=== PATIENT | female | born 1940 | race Caucasian/White ===

== ENCOUNTER 2020-07-12 06:06 | Day surgery (SDC) | payer MEDICARE, SELFPAY ==
--- NOTE | 2020-07-11 10:32 | HO.ANESPROP2 ---
Documented by User: Suma Art 07/11/20 10:39 HPI - Anesthesia Eval Consult details Narrative: 79yo F for Lithotripsy ESW PMFSH Past Medical History Medical History Aortic valvular disease Arrhythmia Cancer Diabetes Elevated cholesterol HTN (hypertension) Hx of radiation therapy Hx of renal calculi Thyroid disease Surgical History Surgical History H/O colonoscopy History of breast lump/mass excision Hx of appendectomy Hx of lithotripsy Social History Social History Smoking Status: Former smoker Smoked in Last 30 Days: No Smoking Quit Date: as teen Use of substances other than those prescribed or required for medical reasons: No Have you been hit, kicked, punched, or otherwise hurt by someone within the past year? If so, by whom?: No Advance Directives Information Provided: No Recently lost weight without trying: No Meds Allergies Allergy/AdvReac Type Severity Reaction Status Date / Time Sulfa (Sulfonamide Allergy Intermediate RASH Verified 07/07/20 09:41 Antibiotics) [SULFA (SULFONAMIDE ANTIBIOTICS)] Home Medications Medication Instructions Recorded Confirmed Type letrozole 1 tab PO DAILY 07/07/20 07/07/20 History levothyroxine 1 tab PO DAILY 07/07/20 07/07/20 History metformin 1 tab PO DAILY 07/07/20 07/07/20 History paroxetine HCl 1 tab PO DAILY 07/07/20 07/07/20 History indapamide 1 tab PO QAM 07/12/20 07/12/20 History olmesartan 1 tab PO DAILY 07/12/20 07/12/20 History pyridoxine (vitamin B6) 1 tab PO DAILY 07/12/20 07/12/20 History rosuvastatin 10 mg PO BEDTIME 07/12/20 07/12/20 History Exam Exam Date and Time: July 11, 2020 1032 Height,Weight and Vital Signs: Height 5 ft 4 in Weight 79.379 kg Pertinent Lab Results Pertinent Lab Results: Laboratory Tests 05/09/20 05/09/20 09:00 09:00 WBC 5.3 Hgb 12.7 Hct 39.9 Sodium 142 Potassium 4.6 Chloride 109 H BUN 14 Creatinine 1.20 Assessment and Plan Assessment Anesthesia Assessment: Chart Reviewed Documented by User: Connie Smith 07/12/20 07:35 PMFSH Past Medical History Medical History Aortic valvular disease Arrhythmia Cancer Diabetes Elevated cholesterol HTN (hypertension) Hx of radiation therapy Hx of renal calculi Thyroid disease Surgical History Surgical History H/O colonoscopy History of breast lump/mass excision Hx of appendectomy Hx of lithotripsy Social History Social History Smoking Status: Former smoker Smoked in Last 30 Days: No Smoking Quit Date: as teen Use of substances other than those prescribed or required for medical reasons: No Have you been hit, kicked, punched, or otherwise hurt by someone within the past year? If so, by whom?: No Advance Directives Information Provided: No Recently lost weight without trying: No Meds Allergies Allergy/AdvReac Type Severity Reaction Status Date / Time Sulfa (Sulfonamide Allergy Intermediate RASH Verified 07/07/20 09:41 Antibiotics) [SULFA (SULFONAMIDE ANTIBIOTICS)] Home Medications Medication Instructions Recorded Confirmed Type letrozole 1 tab PO DAILY 07/07/20 07/07/20 History levothyroxine 1 tab PO DAILY 07/07/20 07/07/20 History metformin 1 tab PO DAILY 07/07/20 07/07/20 History paroxetine HCl 1 tab PO DAILY 07/07/20 07/07/20 History indapamide 1 tab PO QAM 07/12/20 07/12/20 History olmesartan 1 tab PO DAILY 07/12/20 07/12/20 History pyridoxine (vitamin B6) 1 tab PO DAILY 07/12/20 07/12/20 History rosuvastatin 10 mg PO BEDTIME 07/12/20 07/12/20 History Exam Airway Mallampati Class: II TM Dist: >3cm Neck ROM: Full Partial: Upper Heart: RRR Lungs: CTA
--- NOTE | 2020-07-12 06:00 | XR_ITS ---
EXAMINATION: ABDOMEN 1 VIEW CLINICAL INFORMATION: Right nephrolithiasis. COMPARISON: 06/02/2020. TECHNIQUE: A supine view of the abdomen is provided. FINDINGS: There are no dilated loops of small bowel. There are no air-fluid levels. Overlying the interpole region of the right kidney, there is an approximately 8 mm calcification.. The visualized lung bases are clear. The osseous structures are stable. XR/XR KUB IMPRESSION: Unremarkable bowel gas pattern. 8 mm right renal calcification.
[2020-07-12 07:07] LABS: Glucose, Whole Blood 122 mg/dL (60-115)
[2020-07-12 07:20] VITALS: BP 151/70; PULSE 62; RESP 20; TEMP 36.4; O2SAT 98
[2020-07-12] MEDS: Lactated Ringers 1,000 ML 50 ML IVCONT (07:32)
--- NOTE | 2020-07-12 07:35 | P.CONAN_ITS ---
[facility] Past Medical History Medical History Aortic valvular disease Arrhythmia Cancer Diabetes Elevated cholesterol HTN (hypertension) Hx of radiation therapy Hx of renal calculi Thyroid disease Surgical History Surgical History H/O colonoscopy History of breast lump/mass excision Hx of appendectomy Hx of lithotripsy Social History Social History Smoking Status: Former smoker Smoked in Last 30 Days: No Smoking Quit Date: as teen Use of substances other than those prescribed or required for medical reasons: No Have you been hit, kicked, punched, or otherwise hurt by someone within the past year? If so, by whom?: No Advance Directives Information Provided: No Recently lost weight without trying: No Meds Allergies Allergy/AdvReac Type Severity Reaction Status Date / Time Sulfa (Sulfonamide Allergy Intermediate RASH Verified 07/07/20 09:41 Antibiotics) [SULFA (SULFONAMIDE ANTIBIOTICS)] Home Medications Medication Instructions Recorded Confirmed Type letrozole 1 tab PO DAILY 07/07/20 07/07/20 History levothyroxine 1 tab PO DAILY 07/07/20 07/07/20 History metformin 1 tab PO DAILY 07/07/20 07/07/20 History paroxetine HCl 1 tab PO DAILY 07/07/20 07/07/20 History indapamide 1 tab PO QAM 07/12/20 07/12/20 History olmesartan 1 tab PO DAILY 07/12/20 07/12/20 History pyridoxine (vitamin B6) 1 tab PO DAILY 07/12/20 07/12/20 History rosuvastatin 10 mg PO BEDTIME 07/12/20 07/12/20 History Exam Exam Date and Time: July 12, 2020 0735 Height,Weight and Vital Signs: Height 5 ft 4 in Weight 79.379 kg Last Vital Signs Temp 97.5 F 07/12/20 07:20 Pulse 62 07/12/20 07:20 Resp 20 07/12/20 07:20 BP 151/70 H 07/12/20 07:20 Pulse Ox 98 07/12/20 07:20 Pertinent Lab Results Pertinent Lab Results: Laboratory Tests 07/12/20 07:02 POC Glucose 122 H Assessment and Plan Assessment Anesthesia Assessment: Anesthesia Plan Discussed and Chart Reviewed Final Anesthetic Review NPO: Yes ASA Class: II Final Preanesthetic Review: No Changes in Pt Med Stat, Meds/Allgs Chart Reviewed, Consent Obtained/Reviewed and Anes Risks/Benef Reviewed Patient Risk: Intermediate Procedure Risk: Low Anesthetic Plan Anesthetic Plan: GA Disposition: Standard PACU
--- NOTE | 2020-07-12 08:06 | PC.NURSE ---
PATIENT STATED SHE HASNT BEEN ON COUMADIN SINCE SEPTEMBER.
--- NOTE | 2020-07-12 08:15 | P.HPSUR_ITS ---
Pre-Procedural Eval Section B Chief Complaint: RIGHT RENAL STONE Details of Present Illness: right renal stone with symptoms Relevant Family History (Specify if Yes): No Relevant Social History: None Present Medications: see Short Stay Collaborative assessment Medical History: Significant History History of Previous Operations: Relevant previous surgery/procedure and date(s) Allergies: Allergies Allergy/AdvReac Type Severity Reaction Status Date / Time Sulfa (Sulfonamide Allergy Intermediate RASH Verified 07/07/20 09:41 Antibiotics) [SULFA (SULFONAMIDE ANTIBIOTICS)] Review of Systems Sugical H&P ROS: Negative: Constitution, Cardiovascular, Respiratory, Neurological, Psychiatric, Hem-Onc, Allergic/Immunologic, Gastrointestinal, Genitourinary, Musculoskeletal, Integumentary, Endocrine and Eyes/Ears/Nose/Throat Exam Surgical H&P Exam: Normal: HEENT, Normal: Heart, Normal: Lungs, Normal: E xtremities, Normal: Abdomen, Normal: Skin and Normal: Neurological Plan Diagnosis/Plan: Unchanged Patient has been examined and remains a candidate for the planned procedure
--- NOTE | 2020-07-12 08:49 | PM.OP ---
Brief Operative Note Date of procedure: 07/12/20 Pre-op diagnosis: right nephrolithiasis Post-op diagnosis: same Procedure: right ESWL Surgeon: Michele Jarquin MD Anesthesia: MAC Estimated blood loss (mL): 0 Pathology: none sent Condition: stable Disposition: same day
--- NOTE | 2020-07-12 08:50 | W.PM.OPN ---
Operative Note Operative Note Narrative: PreOperative Diagnosis: Renal stones Post Operative Diagnosis: Renal stones Procedure: Right ESWL Surgeron: Dr Michele Jarquin Anesthesia: mac/sedation Indications for procedure: They understand ESWL may be a staged procedure and subsequent intervention may be required based on imaging after ESWL. They also understand there is a risk of bleeding, infection, damage to adjacent organs. Procedure: After informed consent was verified patient was brought to the operating room placed in supine position. Anesthesia was performed per protocol. Safety pause time-out was performed. Antibiotics have been given. ESWL was performed. The 1st 500 shocks were performed at 60 hertz. This was performed with increasing power. Once maximum power was reached the rate was increased to 180 hertz. A total of 2500 shocks were given. Fluoroscopy showed stone disintegration. They tolerated procedure well and was transferred to the recovery area upon completion.
[2020-07-12 08:54] VITALS: BP 183/65; PULSE 73; RESP 16; TEMP 36.6; O2SAT 97
[2020-07-12 08:59] VITALS: BP 163/60; PULSE 69; RESP 16; O2SAT 100
[2020-07-12 09:04] VITALS: BP 169/67; PULSE 65; RESP 16; TEMP 36.6; O2SAT 100
[2020-07-12 09:09] VITALS: BP 168/81; PULSE 66; RESP 16; O2SAT 99
--- NOTE | 2020-07-12 09:40 | HO.POSTANES ---
Post Anesthesia Evaluation Post Anesthesia Evaluation Vital Signs: Vital Signs Temp Pulse Resp BP Pulse Ox 07/12/20 09:09 97.8 F 66 16 168/81 H 99 07/12/20 09:04 97.8 F 65 16 169/67 H 100 07/12/20 08:59 69 16 163/60 H 100 07/12/20 08:54 97.8 F 73 16 183/65 H 97 07/12/20 07:20 97.5 F 62 20 151/70 H 98 Anesthesia: General LMA Mental Status: Awake Pain Control: Satisfactory Nausea/Vomiting: None Hydration: Adequate Anesthesia-Related Issues: No Anes. Related Issues
== END 2020-07-12 09:55 | disposition home or self-care (01) ==
PROVIDERS: PCP Internal Medicine; Visit Provider Urology
PROC: (CPT 50590; principal; 2020-07-12 07:30)
DX: N20.0 Calculus of kidney (principal); Z87.442 Personal history of urinary calculi; I10 Essential (primary) hypertension; E11.9 Type 2 diabetes mellitus without complications; I48.91 Unspecified atrial fibrillation; E78.5 Hyperlipidemia, unspecified; C50.912 Malignant neoplasm of unspecified site of left female breast; Z79.811 Long term (current) use of aromatase inhibitors; Z92.3 Personal history of irradiation; Z90.710 Acquired absence of both cervix and uterus; Z79.84 Long term (current) use of oral hypoglycemic drugs; Z79.899 Other long term (current) drug therapy; Z96.653 Presence of artificial knee joint, bilateral; Z87.891 Personal history of nicotine dependence; Z88.2 Allergy status to sulfonamides; Z86.19 Personal history of other infectious and parasitic diseases
CPT/HCPCS: 50590; 74018; 82947; J1100; J2405; J3010

== ENCOUNTER 2020-08-28 08:50 | Outpatient (REF) | payer MEDICARE, SELFPAY ==
--- NOTE | 2020-08-28 08:55 | MM_ITS ---
EXAMINATION: MM DIAGNOSTIC DIGITAL MAMMOGRAPHY, BILATERAL CLINICAL INFORMATION: Right breast cancer status post lumpectomy 08/27/2017. More remote prior left breast surgery. Due for yearly COMPARISON: Mammography: 08/23/2019, 07/09/2018, 07/24/2017, 07/08/2017 TECHNIQUE: Digital mammography is performed in craniocaudal and mediolateral oblique views along with computer-aided detection (CAD). FINDINGS: There are scattered areas of fibroglandular density (ACR BI-RADS breast composition Category b). There are no significant changes from prior exam. Again, left breast has post surgical changes with reduced breast size, stable scarring, lumpectomy bed surgical clip, and left axillary clips. The right breast has a BioZorb device at the recent lumpectomy site as well as to two biopsy clip markers mid 9:00 position and right axillary surgical clips. Neither breast shows interval mass or interval architectural abnormality or abnormal calcifications. There are no significant changes. Results are provided to the patient at time of visit by the technologist. MM/MM diagnostic mammo BI IMPRESSION: No significant changes from prior exam. Bilateral postsurgical changes. ASSESSMENT: BI-RADS 2: Benign RECOMMENDATION: Routine annual mammography screening. This patient's information was entered into a reminder system with a target due date for their next mammogram.
== END 2020-08-28 08:51 | disposition home or self-care (01) ==
LOC: HO.MAMMO 08:50
PROVIDERS: Visit Provider Surgery
DX: C80.1 Malignant (primary) neoplasm, unspecified (principal)
CPT/HCPCS: 77066

== ENCOUNTER → 2020-09-13 08:49 | Outpatient (BNVA) | payer MEDICARE, SELFPAY | PROVIDERS: PCP Internal Medicine; Visit Provider Surgery | DX: C80.1 Malignant (primary) neoplasm, unspecified (principal) | CPT/HCPCS: 99212 ==

== ENCOUNTER → 2020-11-06 08:19 | Outpatient (BNV) | payer MEDICARE, SELFPAY | PROVIDERS: PCP Internal Medicine; Visit Provider Internal Medicine | DX: Z85.3 Personal history of malignant neoplasm of breast (principal) | CPT/HCPCS: 99213; 99214; G2211 ==

== ENCOUNTER 2020-12-21 09:43 | Outpatient (REF) | payer MEDICARE, SELFPAY ==
--- NOTE | ~2020-12-21 | US_ITS ---
EXAMINATION: US RETROPERITONEAL LIMITED (RENAL ONLY) CLINICAL INFORMATION: Calculus of kidney. COMPARISON: KUB 07/12/2020 and 06/02/2020. Renal ultrasound 07/13/2019 and 11/07/2016. TECHNIQUE: Real-time imaging of the kidneys. FINDINGS: RIGHT KIDNEY: 9.0 x 3.8 x 4.8 cm (SAG x AP x TRV). The kidney is normal in size, contour, and echogenicity. Renal cortical thickness is normal. No focal parenchymal lesions or hydronephrosis. There are numerous punctate foci. The largest foci in the midpole measures 0.4 x 0.5 x 0.4 cm and lower pole measures 0.3 x 0.2 x 0.2 cm. LEFT KIDNEY: 10.6 x 4.6 x 4.9 cm (SAG x AP x TRV). The kidney is normal in size, contour, and echogenicity. Renal cortical thickness is normal. No focal parenchymal lesions or hydronephrosis. There are numerous punctate foci with the largest midpole measuring 0.2 x 0.2 x 0.3 cm. US/US renal BI IMPRESSION: Bilateral numerous echogenic foci without caliectasis or hydronephrosis. Both kidneys are otherwise unremarkable.
== END 2020-12-21 09:44 | disposition home or self-care (01) ==
LOC: HO.HMGCX 09:43
PROVIDERS: PCP Internal Medicine; Visit Provider Urology
DX: N20.0 Calculus of kidney (principal)
CPT/HCPCS: 76775

== ENCOUNTER → 2020-12-28 09:30 | Outpatient (BNVA) | payer MEDICARE, SELFPAY | PROVIDERS: PCP Internal Medicine; Visit Provider Urology | DX: N20.0 Calculus of kidney (principal) | CPT/HCPCS: Q3014 ==

== ENCOUNTER → 2021-03-27 10:41 | Outpatient (BNVA) | payer MEDICARE, SELFPAY | PROVIDERS: PCP Internal Medicine; Referring Provider Internal Medicine; Visit Provider Surgery | DX: D05.12 Intraductal carcinoma in situ of left breast (principal); D05.11 Intraductal carcinoma in situ of right breast; E11.9 Type 2 diabetes mellitus without complications; I10 Essential (primary) hypertension; E78.00 Pure hypercholesterolemia, unspecified; Z17.0 Estrogen receptor positive status [ER+]; Z92.3 Personal history of irradiation; Z88.2 Allergy status to sulfonamides; Z79.811 Long term (current) use of aromatase inhibitors; Z79.899 Other long term (current) drug therapy | CPT/HCPCS: 99212 ==

== ENCOUNTER 2021-07-12 08:52 | Outpatient (REF) | payer MEDICARE, SELFPAY ==
--- NOTE | ~2021-07-12 | US_ITS ---
EXAMINATION: US RETROPERITONEAL LIMITED (RENAL ONLY) CLINICAL INFORMATION: Calculus of kidney. COMPARISON: Renal ultrasound 12/21/2020 TECHNIQUE: Real-time imaging of the kidneys. FINDINGS: RIGHT KIDNEY: 8.5 x 3.7 x 2.8 cm (SAG x AP x TRV). The kidney is normal in size, contour, and echogenicity. Renal cortical thickness is normal. There are multiple renal stones. Largest stones measure 5 to 6 mm in the mid to lower pole. No focal parenchymal lesions or hydronephrosis. LEFT KIDNEY: 10.1 x 4.8 x 5.0 cm (SAG x AP x TRV). The kidney is normal in size, contour, and echogenicity. Renal cortical thickness is normal. There are multiple renal stones. Largest stone measures 4 mm in the lower pole. No focal parenchymal lesions or hydronephrosis. US/US renal BI IMPRESSION: Multiple bilateral renal stones.
== END 2021-07-12 08:53 | disposition home or self-care (01) ==
LOC: HO.US 08:52
PROVIDERS: PCP Internal Medicine; Visit Provider Urology
DX: N20.0 Calculus of kidney (principal)
CPT/HCPCS: 76775

== ENCOUNTER → 2021-07-20 09:14 | Outpatient (BNVA) | payer MEDICARE, SELFPAY | PROVIDERS: PCP Internal Medicine | DX: N20.0 Calculus of kidney (principal) | CPT/HCPCS: 99212 ==

== ENCOUNTER 2021-09-10 08:05 | Outpatient (REF) | payer MEDICARE, SELFPAY ==
--- NOTE | ~2021-09-10 | US_ITS ---
EXAMINATION: US RETROPERITONEAL LIMITED (RENAL ONLY) CLINICAL INFORMATION: Calculus of kidney. COMPARISON: Renal ultrasound 07/12/2021 and 12/21/2020. TECHNIQUE: Real-time imaging of the kidneys. FINDINGS: RIGHT KIDNEY: 9.4 x 3.8 x 4.6 cm (SAG x AP x TRV). The kidney is normal in size, contour, and echogenicity. Renal cortical thickness is normal. There is anechoic cyst in upper pole measuring 0.7 x 0.7 x 0.9 cm. There are several echogenic stones. The upper pole echogenic stone measures 0.5 x 0.2 x 0.4 cm. In the midpole the echogenic stone measures 0.5-0 0.3 x 0.5 cm. A lower pole echogenic stone measures 0.5-0 0.2 x 0.4 cm. There is no caliectasis or hydronephrosis. LEFT KIDNEY: 10.2 x 4.6 x 4.9 cm (SAG x AP x TRV). The kidney is normal in size, contour, and echogenicity. Renal cortical thickness is normal. No focal parenchymal lesions or hydronephrosis. There are several small echogenic stones in the left kidney. The largest echogenic stone in the lower pole measures 0.4 x 0.3 x 0.7 cm. Small linear echogenic foci is seen in the midpole with twinkle artifact. US/US renal BI IMPRESSION: Several echogenic stones bilaterally without any caliectasis or hydronephrosis. Linear echogenic foci with twinkling artifact in the midpole.
== END 2021-09-10 08:06 | disposition home or self-care (01) ==
LOC: HO.US 08:05
DX: N20.0 Calculus of kidney (principal)
CPT/HCPCS: 76775

== ENCOUNTER → 2021-09-27 09:28 | Outpatient (BNVA) | payer MEDICARE, SELFPAY | PROVIDERS: PCP Internal Medicine; Referring Provider Internal Medicine; Visit Provider Surgery | DX: C50.911 Malignant neoplasm of unspecified site of right female breast (principal); C50.912 Malignant neoplasm of unspecified site of left female breast; Z79.811 Long term (current) use of aromatase inhibitors; Z17.0 Estrogen receptor positive status [ER+]; Z92.3 Personal history of irradiation | CPT/HCPCS: 99212 ==

== ENCOUNTER → 2021-10-18 08:39 | Outpatient (BNVA) | payer MEDICARE, SELFPAY | PROVIDERS: PCP Internal Medicine | DX: N20.0 Calculus of kidney (principal) | CPT/HCPCS: Q3014 ==

== ENCOUNTER 2021-11-09 10:24 | Outpatient (REF) | payer MEDICARE, SELFPAY ==
--- NOTE | ~2021-11-09 | MM_ITS ---
EXAMINATION: MM SCREENING DIGITAL BREAST TOMOSYNTHESIS, BILATERAL CLINICAL INFORMATION: Screening. Asymptomatic. Lumpectomy for right breast cancer 08/27/2017. Prior remote left breast surgery. Due for yearly exam. COMPARISON: Mammography: 08/28/2020, 08/23/2019, 08/27/2018, 08/12/2017 TECHNIQUE: Digital breast tomosynthesis is performed in both the craniocaudal and mediolateral oblique views along with computer-aided detection (CAD). Synthesized 2D images are generated from the tomosynthesis. FINDINGS: There are scattered areas of fibroglandular density (ACR BI-RADS breast composition Category b). Parenchymal pattern is similar to prior studies. Left breast again has postsurgical changes with scarring and reduced breast size, and left axillary clips. Right breast again has collapsing BioZorb device at lumpectomy site as well as biopsy clip markers mid 9:00 position and right axillary clips. There is no developing density or interval mass or interval architectural abnormality. No abnormal calcifications MM/MM tomosynthesis screening BI IMPRESSION: No significant changes from prior exams. Bilateral post surgical changes. ASSESSMENT: BI-RADS 2: Benign RECOMMENDATION: Routine annual mammography screening. This patient's information was entered into a reminder system with a target due date for their next mammogram.
== END 2021-11-09 10:25 | disposition home or self-care (01) ==
LOC: HO.MAMMO 10:24
PROVIDERS: Visit Provider Surgery
DX: Z12.31 Encounter for screening mammogram for malignant neoplasm of breast (principal)
CPT/HCPCS: 77063; 77067

== ENCOUNTER 2022-04-01 10:57 | Outpatient (REF) | payer MEDICARE, SELFPAY ==
--- NOTE | ~2022-04-01 | US_ITS ---
EXAMINATION: US RETROPERITONEAL LIMITED (RENAL ONLY) CLINICAL INFORMATION: Calculus of kidney. COMPARISON: Ultrasound renal 09/10/2021 and 07/12/2021. TECHNIQUE: Real-time imaging of the kidneys. FINDINGS: RIGHT KIDNEY: 9.6 x 3.6 x 3.5 cm (SAG x AP x TRV). The kidney is normal in size, contour, and echogenicity. Renal cortical thickness is normal. No renal hydronephrosis. There is anechoic cyst upper pole measuring 0.6 x 0.6 x 0.7 cm. There are nonobstructive echogenic calculi in midpole measuring 0.4 x 0.3 x 0.4 cm and lower pole measuring 0.3 x 0.2 x 0.3 cm.. There are multiple twinkle areas seen question calcification versus small stones. LEFT KIDNEY: 10.4 x 5.0 x 4.4 cm (SAG x AP x TRV). The kidney is normal in size, contour, and echogenicity. Renal cortical thickness is normal. No focal parenchymal lesions or hydronephrosis. There is an echogenic nonobstructive 0.3 cm stone in the lower pole. No additional echogenic calculi. No caliectasis. US/US renal BI IMPRESSION: Bilateral nonobstructive echogenic renal calculi. There is no hydronephrosis. No major change compared to previous study 09/10/2021 Anechoic cyst upper pole left kidney. No hydronephrosis.
== END 2022-04-01 10:58 | disposition home or self-care (01) ==
LOC: HO.US 10:57
PROVIDERS: PCP Internal Medicine; Visit Provider Urology
DX: N20.0 Calculus of kidney (principal)
CPT/HCPCS: 76775

== ENCOUNTER → 2022-04-11 10:11 | Outpatient (BNVA) | payer MEDICARE, SELFPAY | PROVIDERS: PCP Internal Medicine; Visit Provider Surgery | DX: C80.1 Malignant (primary) neoplasm, unspecified (principal); Z85.3 Personal history of malignant neoplasm of breast | CPT/HCPCS: 99212 ==

== ENCOUNTER 2022-04-19 10:55 | Outpatient (AMB) | payer MEDICARE, SELFPAY ==
--- NOTE | 2022-04-18 13:49 | A.OFFVIS_ITS ---
Intake Intake Visit Reasons: 6 mth follow up US and [facility] (US 04/01/ Litho?) Intake Note: Patient is present for ultraosound follow up Current Medication Vitamin B6 Incident Response Engineer Required: No Accompanied by: Self / Same As Patient Allergies Sulfa (Sulfonamide Antibiotics) [SULFA (SULFONAMIDE ANTIBIOTICS)] Allergy (Intermediate, Verified 04/25/23 11:15) RASH HPI HPI Comments History of Present Illness Details Carie Villatoro is a very pleasant female. They are a patient of Dr. Gandhi. They are seen in the office today for the following urologic conditions. Discussed ultrasound result with bilateral small stones Restart vitamin B6 and indapamide Prescriptions provided Review in 6 Nephrolithiasis/Urolithiasis: They are here for further evaluation of nephrolithiasis - stable, no stones - continue indapamide and vit B6. They present for evaluation of back pain none flank pain none abdominal pain none Urolithiasis was diagnosed 2011 - had urosepsis. The patient previously had kidney stones whose composition w calcium oxalate, calcium phosphate - hydroxyapatite, diagnosed after surgical stone removal. Laboratory investigations include Base line serum evaluation, Normocalcemia (9.0), Normal PTH, Normal uric acid. 24 Hour urine evaluation January 2016 - Low Urine volume < 2.0 liters, Hyperaclicuria (> 200mg), High oxalate > 30mg, Low urine pH < 5.13 Jul 2016 , Low Urine volume < 2.0 liters, Low calcium < 200, stable oxalate, good pH. Prior treatment(s) include right, PCNL, with dietary advice to increase fluids, decrease salt and watch protein intake- Admission to [facility] with urosepsis of November 201208/24 - add indapamide and Vit B6. Prior imaging includes a KUB x-ray November 2014 negative, January 2016 negative , a renal ultrasound 11/22 2mm left stone 02/22 , a renal ultrasound 2x5mm on right 03/24 CT with focal scarring on left, right small caclcification 08/25 , a KUB x-ray, showing no evidence of stones 06/26 , a renal ultrasound, showing no evidence of stones 05/28 , a renal ultrasound, right 9 mm upper pole stone - 12/27 renal ultrasound bilateral small stones Current therapeutic plan will be to continue with imaging surveillance [facility] Medical History Aortic valvular disease Arrhythmia Cancer Diabetes Elevated cholesterol HTN (hypertension) Hx of radiation therapy Hx of renal calculi Thyroid disease Surgical History H/O colonoscopy History of breast lump/mass excision Hx of appendectomy Hx of lithotripsy Family History Father Dementia Brother Heart disease Social History Household Members: Significant Other Housing: House Alcohol intake: former Patient Tobacco Use Status: Former Tobacco user service: No Current occupational status: retired Review of Systems Const Denies chills and Denies fever(s) Card Reports no additional complaints and Denies syncope Resp Denies cough GI Denies abdominal pain and Denies heartburn Reports as per HPI and Denies change in libido Neuro Denies syncope Psych Denies change in libido Endo Denies change in libido Physical Exam Const General: cooperative, healthy appearing, comfortable and no acute distress Orientation/consciousness: patient oriented x3 HEENT Face and sinus: Yes normal facial exam Mouth: moist mucous membranes Neck Neck: Yes normal visual inspection, Yes full ROM and Yes trachea midline Chest Chest palpation & inspection: normal inspection of the chest Resp Effort & Inspection: normal respiratory effort, able to speak in complete sentences and no respiratory distress GI Inspection: Yes normal to inspection Back/Spine/Pelvis Cervical Spine: normal cervical lordosis Thoracic/Lumbar Spine: thoracic and lumbar spine normal to inspection Skin General skin exam: no rashes or lesions noted Neuro General: patient oriented x3, gait normal, tone normal and moves all extremities Extrem General: Yes normal to inspection and Yes capillary refill normal Assessment & Plan Assessment & Plan (1) Nephrolithiasis: Code(s): N20.0 - Calculus of kidney Plan Six-month follow-up imaging Orders: Orders US renal BI 6 Months N20.0 - Calculus of kidney Patient Instructions: Imaging studies, laboratory and physical exam results were discussed and reviewed in detail. No major barriers to patient understanding were identified. An opportunity to ask questions regarding the treatment plan was provided. All questions were answered. The patient expressed understanding and agreement with the above treatment plan. The patient is aware they should contact our office by phone for worsening of their current condition or the appearance of new urologic symptoms. Compliance is encouraged with any medications and followup testing that is ordered. It is a privilege to participate in the urologic care of your patient. If you have any questions or concerns regarding treatment for the above conditions, or other urologic issues, please do not hesitate to contact me. The office telephone contact is [phone]. This note is constructed using voice recognition software. While every effort has been made to ensure accuracy psychometrist errors may have been included. Yours sincerely, Dr Michele Jarquin MD, [facility] - Urology Providers of Expert, Compassionate Care for the Genitourinary System Coding Level of Care Code Est Pt Level 3 (46220) Diagnoses Nephrolithiasis N20.0
== END 2022-04-19 11:53 | disposition home or self-care (01) ==
LOC: HO.HUSH 10:55
PROVIDERS: PCP Internal Medicine; Visit Provider Urology
DX: N20.0 Calculus of kidney (principal)
CPT/HCPCS: 99499

== ENCOUNTER 2022-10-14 09:39 | Outpatient (REF) | payer MEDICARE, SELFPAY ==
--- NOTE | ~2022-10-14 | US_ITS ---
EXAMINATION: US RETROPERITONEAL LIMITED (RENAL ONLY) CLINICAL INFORMATION: Calculus of kidney. COMPARISON: Ultrasound retroperitoneal limited (renal only) 04/01/2022 and 09/10/2021. X-ray abdomen KUB 07/12/2020 and 06/02/2020. TECHNIQUE: Real-time imaging of the kidneys. FINDINGS: RIGHT KIDNEY: 8.6 x 3.7 x 4.0 cm (SAG x AP x TRV). The kidney is normal in size, contour, and echogenicity. Renal cortical thickness is normal. No focal parenchymal lesions or hydronephrosis. At least 3 echogenic foci consistent with nonobstructing renal calculi are seen ranging in size from 2 to 5 mm. LEFT KIDNEY: 10.0 x 4.8 x 5.1 cm (SAG x AP x TRV). The kidney is normal in size, contour, and echogenicity. Renal cortical thickness is normal. No focal parenchymal lesions or hydronephrosis. There is a 2.6 mm nonobstructing calculus seen in the left mid kidney. US/US renal BI IMPRESSION: Bilateral nonobstructing renal calculi as seen previously. Stone burden appears similar.
== END 2022-10-14 09:40 | disposition home or self-care (01) ==
LOC: HO.HMGCX 09:39
PROVIDERS: PCP Internal Medicine; Visit Provider Urology
DX: N20.0 Calculus of kidney (principal)
CPT/HCPCS: 76775

== ENCOUNTER → 2022-10-25 10:17 | Outpatient (BNVA) | payer MEDICARE, SELFPAY | PROVIDERS: PCP Internal Medicine; Visit Provider Urology | DX: N20.0 Calculus of kidney (principal) | CPT/HCPCS: 99212 ==

== ENCOUNTER 2022-11-15 07:54 | Outpatient (REF) | payer MEDICARE, SELFPAY ==
--- NOTE | ~2022-11-15 | MM_ITS ---
EXAMINATION: MM SCREENING DIGITAL BREAST TOMOSYNTHESIS, BILATERAL CLINICAL INFORMATION: Screening. Asymptomatic. Right lumpectomy for breast cancer 08/27/2017. More remote prior left breast surgery. Due for yearly. COMPARISON: Mammography: 11/09/2021, 08/28/2020, 08/23/2019 TECHNIQUE: Digital breast tomosynthesis is performed in both the craniocaudal and mediolateral oblique views along with computer-aided detection (CAD). Synthesized 2D images are generated from the tomosynthesis. FINDINGS: There are scattered areas of fibroglandular density (ACR BI-RADS breast composition Category b). There are bilateral postsurgical changes similar to prior studies. There is chronic scarring central left breast and left axillary clips. Right breast has collapsed BioZorb device posterior medial breast and 2 clip markers mid outer breast and right axillary clips. Parenchymal pattern is similar to prior studies. No significant mass or interval architectural abnormality or abnormal calcifications. No developing density. There are scattered bilateral round, some dystrophic, and vascular calcifications. No significant changes. MM/MM tomosynthesis screening BI IMPRESSION: -No mammographic evidence of malignancy. -Bilateral post surgical changes. ASSESSMENT: BI-RADS 2: Benign RECOMMENDATION: Routine annual mammography screening. This patient's information was entered into a reminder system with a target due date for their next mammogram.
== END 2022-11-15 07:55 | disposition home or self-care (01) ==
LOC: HO.MAMMO 07:54
PROVIDERS: PCP Internal Medicine; Visit Provider Internal Medicine
DX: Z12.31 Encounter for screening mammogram for malignant neoplasm of breast (principal)
CPT/HCPCS: 77063; 77067

== ENCOUNTER 2023-03-13 08:53 | Outpatient (REF) | payer MEDICARE, SELFPAY | END 2023-03-13 08:54 | disposition home or self-care (01) | LOC: HO.MAMMO 08:53 | PROVIDERS: PCP Internal Medicine; Visit Provider Internal Medicine | DX: Z13.820 Encounter for screening for osteoporosis (principal); Z78.0 Asymptomatic menopausal state | CPT/HCPCS: 77080 ==

== ENCOUNTER 2023-04-10 12:14 | Outpatient (REF) | payer MEDICARE, SELFPAY ==
--- NOTE | ~2023-04-10 | US_ITS ---
EXAMINATION: US RETROPERITONEAL LIMITED (RENAL ONLY) CLINICAL INFORMATION: Calculus of kidney. COMPARISON: Ultrasound retroperitoneal limited (renal only) 10/14/2022 and 04/01/2022. X-ray abdomen KUB 07/12/2020 and 06/02/2020. TECHNIQUE: Real-time imaging of the kidneys. FINDINGS: RIGHT KIDNEY: 9.1 x 3.9 x 3.2 cm (SAG x AP x TRV). 0.7 x 0.7 x 0.5 cm benign right upper pole simple renal cyst. The technologist salmeron 3, 0.5 cm or less echogenic right renal structures which do not clearly demonstrate posterior shadowing. The kidney otherwise appears unremarkable in size, contour, and echogenicity. Renal cortical thickness appears unremarkable. No hydronephrosis. LEFT KIDNEY: 9.8 x 5.0 x 3.9 cm (SAG x AP x TRV). The technologist salmeron 3, 0.2 cm or less echogenic left renal structures which do not clearly demonstrate posterior shadowing. The kidney otherwise appears unremarkable in size, contour, and echogenicity. Renal cortical thickness is normal. No hydronephrosis appreciated. US/US renal BI IMPRESSION: The technologist salmeron 0.5 cm or less, bilateral echogenic renal structures which do not clearly demonstrate posterior shadowing. Differential diagnosis includes, but is not limited to; normal renal sinus fat; nonshadowing, nonobstructing stones; angiomyolipomata; etc. No evidence of hydronephrosis. If more sensitive, specific, and reproducible imaging is clinically desired, CT scan may be of use.
== END 2023-04-10 12:15 | disposition home or self-care (01) ==
LOC: HO.US 12:14
PROVIDERS: PCP Internal Medicine; Visit Provider Urology
DX: N20.0 Calculus of kidney (principal)
CPT/HCPCS: 76775

== ENCOUNTER 2023-04-25 09:06 | Outpatient (AMB) | payer MEDICARE, SELFPAY ==
--- NOTE | 2023-04-25 09:10 | A.OFFVIS_ITS ---
Intake Intake Visit Reasons: 6M US(set) Intake Note: Patient is present for Follow Up Ultrasound Urology Med: Vitamin B6 Antibiotic Allergy: Sulfa Antibiotics Blood Thinner: None Pharmacy: [facility] Allergies Sulfa (Sulfonamide Antibiotics) [SULFA (SULFONAMIDE ANTIBIOTICS)] Allergy (Intermediate, Verified 04/25/23 09:12) RASH Medication List - Last Reconciled 04/25/23 by Michele Jarquin MD blood sugar diagnostic (OneTouch Ultra Test strips) As directed blood-glucose meter (OneTouch Ultra2 Meter) As directed cyanocobalamin (vitamin B-12) 5,000 mcg PO DAILY indapamide 2.5 mg PO DAILY 90 days lancets (OneTouch Delica Plus Lancet) As directed letrozole 2.5 mg PO DAILY levothyroxine 1 tab PO DAILY paroxetine HCl 1 tab PO DAILY pyridoxine (vitamin B6) 100 mg PO DAILY rosuvastatin 1 tab PO DAILY HPI HPI Comments History of Present Illness Details Carie Villatoro is a very pleasant female. She is a patient of Dr. Gandhi. She is seen for the following urologic conditions. - nephrolithiasis Increased urinary volume by drinking 3 16 oz bottles of fluid per day Current baseline labs show changed PTH with increasing hypercalciuria Referral for endocrine 6 month review Nephrolithiasis/Urolithiasis: They are here for further evaluation of nephrolithiasis - stable, no stones - continue indapamide and vit B6. Urolithiasis was diagnosed 2011 - had urosepsis. The patient previously had kidney stones whose composition w calcium oxalate, calcium phosphate - hydroxyapatite, diagnosed after surgical stone removal. Laboratory investigations include Base line serum evaluation, Normocalcemia (9.0), Normal PTH, Normal uric acid - 02/28 Ca 10.8, PTH 120 24 Hour urine evaluation January 2016 - Low Urine volume < 2.0 liters, Hyp eraclicuria (> 200mg), High oxalate > 30mg, Low urine pH < 5.13 Jul 2016 , Low Urine volume < 2.0 liters, Low calcium < 200, stable oxalate, good pH. - 09/30 low volume 1.2, high oxalate, low citrate 385 Prior treatment(s) include right, PCNL, with dietary advice to increase fluids, decrease salt and watch protein intake- Admission to [facility] with urosepsis of November 201208/24 - add indapamide and Vit B6. Prior imaging includes a KUB x-ray November 2014 negative, January 2016 negative , a renal ultrasound 11/22 2mm left stone 02/22 , a renal ultrasound 2x5mm on right 03/24 CT with focal scarring on left, right small caclcification 08/25 , a KUB x-ray, showing no evidence of stones 06/26 , a renal ultrasound, showing no evidence of stones 05/28 , a renal ultrasound, right 9 mm upper pole stone - 12/27 renal ultrasound bilateral small stones - 10/31 renal ultrasound bilateral 5 mm stones Current therapeutic plan will be to continue with imaging surveillance [facility] Medical History Aortic valvular disease Arrhythmia Cancer Diabetes Elevated cholesterol HTN (hypertension) Hx of radiation therapy Hx of renal calculi Thyroid disease Surgical History H/O colonoscopy History of breast lump/mass excision Hx of appendectomy Hx of lithotripsy Family History Father Dementia Brother Heart disease Social History Household Members: Significant Other Housing: House Alcohol intake: former Patient Tobacco Use Status: Former Tobacco user service: No Current occupational status: retired Review of Systems Const Denies chills and Denies fever(s) Card Reports no additional complaints and Denies syncope Resp Denies cough GI Denies abdominal pain and Denies heartburn Reports as per HPI and Denies change in libido Neuro Denies syncope Psych Denies change in libido Endo Denies change in libido Physical Exam Const General: cooperative, healthy appearing, comfortable and no acute distress Orientation/consciousness: patient oriented x3 HEENT Face and sinus: Yes normal facial exam Mouth: moist mucous membranes Neck Neck: Yes normal visual inspection, Yes full ROM and Yes trachea midline Chest Chest palpation & inspection: normal inspection of the chest Resp Effort & Inspection: normal respiratory effort, able to speak in complete sentences and no respiratory distress GI Inspection: Yes normal to inspection Back/Spine/Pelvis Cervical Spine: normal cervical lordosis Thoracic/Lumbar Spine: thoracic and lumbar spine normal to inspection Skin General skin exam: no rashes or lesions noted Neuro General: patient oriented x3, gait normal, tone normal and moves all extremities Extrem General: Yes normal to inspection and Yes capillary refill normal Assessment & Plan Assessment & Plan (1) Hyperparathyroidism: Code(s): E21.3 - Hyperparathyroidism, unspecified (2) Nephrolithiasis: Code(s): N20.0 - Calculus of kidney Plan Repeat endocrine referral Six month follow-up imaging Orders: Orders US renal BI 6 Months N20.0 - Calculus of kidney Referrals Endocrinology Referral N20.0 - Calculus of kidney Medications: Refilled indapamide 2.5 mg PO DAILY 90 tabs 1RF 90 days N20.0 - Calculus of kidney Patient Instructions: Imaging studies, laboratory and physical exam results were discussed and reviewed in detail. No major barriers to patient understanding were identified. An opportunity to ask questions regarding the treatment plan was provided. All questions were answered. The patient expressed understanding and agreement with the above treatment plan. The patient is aware they should contact our office by phone for worsening of their current condition or the appearance of new urologic symptoms. Compliance is encouraged with any medications and followup testing that is ordered. It is a privilege to participate in the urologic care of your patient. If you have any questions or concerns regarding treatment for the above conditions, or other urologic issues, please do not hesitate to contact me. The office telephone contact is [phone]. This note is constructed using voice recognition software. While every effort has been made to ensure accuracy emulsification operator errors may have been included. Yours sincerely, Dr Michele Jarquin MD, [facility] - Urology Providers of Expert, Compassionate Care for the Genitourinary System Coding Level of Care Code Est Pt Level 4 (91253) Diagnoses Hyperparathyroidism E21.3 Nephrolithiasis N20.0
== END 2023-04-25 09:33 | disposition home or self-care (01) ==
PROVIDERS: PCP Internal Medicine; Visit Provider Urology
DX: E21.3 Hyperparathyroidism, unspecified (principal); N20.0 Calculus of kidney
CPT/HCPCS: 99213

== ENCOUNTER → 2023-04-25 09:06 | Outpatient (BNVA) | payer MEDICARE, SELFPAY | PROVIDERS: Visit Provider Urology | DX: E21.3 Hyperparathyroidism, unspecified (principal); N20.0 Calculus of kidney; Z85.3 Personal history of malignant neoplasm of breast | CPT/HCPCS: 99212 ==

== ENCOUNTER 2023-04-25 09:46 | Outpatient (AMB) | payer MEDICARE, SELFPAY ==
--- NOTE | 2023-04-25 09:57 | A.OFFVIS_ITS ---
Intake Vital Signs 04/25/23 09:58 Height 5 ft 4 in Weight 146 lb 2 oz BMI 25.1 BP 153/85 H Blood Pressure Location Lt brachial Position Sitting Pulse 74 Intake Visit Reasons: Breast examination, year follow up Intake Note: Patient is seen in office for yearly breast exam. 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 Accompanied by: Self / Same As Patient Allergies Sulfa (Sulfonamide Antibiotics) [SULFA (SULFONAMIDE ANTIBIOTICS)] Allergy (Intermediate, Verified 04/25/23 11:15) RASH Medication List - Last Reconciled 04/25/23 by Tulio James MD cyanocobalamin (vitamin B-12) 5,000 mcg PO DAILY indapamide 2.5 mg PO DAILY 90 days levothyroxine 1 tab PO DAILY paroxetine HCl 1 tab PO DAILY pyridoxine (vitamin B6) 100 mg PO DAILY rosuvastatin 1 tab PO DAILY HPI HPI Comments History of Present Illness Details Carie Villatoro returns today for a follow up breast examination, following history of bilateral breast cancer. She is an 82-year-old female patient of Dr. Gandhi and previous patient of Dr. Marrero, status post bilateral lumpectomies with needle localization and sentinel node biopsy the most recent involving the right breast performed on 08/12/2017. 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 Invasive carcinoma was 1.5 mm from the closest margin. The remaining margins are free of invasive carcinoma by at least 3 mm. DCIS was at least 3 mm from all margins. Lymphovascular invasion was not identified. 2 sentinel nodes were negative for tumor. She completed radiation therapy at [facility] in Oct, 2017 and was seen by Dr. James from medical oncology on December 03, 2017. She was started on Letrozole 2.5 mg daily and completed 5 years of treatment. Her previous left breast surgery was performed at [facility] when she was 38 years old. This was treated with lumpectomy without radiation therapy. She subsequently developed a recurrence in the same breast and underwent a lumpectomy followed by radiation therapy. She denies any new symptoms involving the breasts. Her last mammogram of 11/15/2022 revealed bilateral postprocedure changes but no mammographic evidence of malignancy (BI-RADS 2). [facility] Medical History Aortic valvular disease Arrhythmia Cancer Diabetes Elevated cholesterol HTN (hypertension) Hx of radiation therapy Hx of renal calculi Thyroid disease Surgical History H/O colonoscopy History of breast lump/mass excision Hx of appendectomy Hx of lithotripsy Family History Father Dementia Brother Heart disease Social History Household Members: Significant Other Housing: House Alcohol intake: former Patient Tobacco Use Status: Former Tobacco user service: No Current occupational status: retired Review of Systems Const Denies chills, Denies fever(s), Denies headache(s) and Denies poor appetite ENT Denies dizziness and Denies headache(s) Card Details: History of atrial fibrillation Denies chest pain, Denies rapid heart rate and Denies slow heart rate Resp Denies chest congestion, Denies cough, Denies pain on inspiration and Denies wheezing GI Denies abdominal pain, Denies bloating, Denies change in stool character, Denies constipation, Denies diarrhea, Denies nausea, Denies vomiting and Denies hematemesis Denies nipple discharge Musc Denies back pain, Denies arthralgias, Denies joint swelling and Denies numbness Skin/Breast Denies breast swelling, Denies breast skin changes, Denies breast pain, Denies breast mass, Denies change in breast shape, Denies change in pigmentation, Denie s nipple discharge, Denies erythema and Denies rash Neuro Denies confusion, Denies dizziness, Denies headache(s) and Denies numbness Psych Denies anxiety, Denies confusion and Denies depression Art/Lymph Denies easy bleeding, Denies easy bruising and Denies lymphadenopathy Aller/Immun Denies wheezing Physical Exam Vital Signs: Last Vital Signs Pulse 74 04/25/23 09:58 BP 153/85 H 04/25/23 09:58 BMI result Body Mass Index 25.1 Const General: No confusion Nutritional Appearance: well nourished Orientation/consciousness: No confusion Eyes Sclerae: sclerae normal EOM: EOMs intact bilaterally Neck Lymphatic: no lymphadenopathy noted Chest Other: Right breast: s/p partial mastectomy, no other skin changes, no nipple retraction, no nipple discharge, no palpable mass, no palpable lymph nodes. Left Breast: No skin changes, no nipple changes, no nipple discharge, no palpable mass or axillary nodes. Resp Effort & Inspection: normal respiratory effort, no cough and no respiratory distress Cardio Jugular venous distension: no JVD Skin General skin exam: dry skin Rashes: no rashes Neuro General: No confusion Extrem General: Yes full ROM and Yes no clubbing, cyanosis or edema Assessment & Plan Assessment & Plan (1) History of bilateral breast cancer: Code(s): Z85.3 - Personal history of malignant neoplasm of breast (2) Cancer: Comment: bilateral breast, invasive ductal carcinoma Code(s): C80.1 - Malignant (primary) neoplasm, unspecified Plan: 82-year-old female status post bilateral lumpectomies, sentinel node biopsies the most recent in 2017 for an 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 James). She has now completed her 5 year course. Her most recent mammogram of 11/15/2022 revealed postoperative changes but no mammographic evidence of malignancy (BI-RADS 2).. Examination today reveals no suspicious findings or evidence of recurrence disease. She should continue with self examination on a monthly basis and return approximately 1 year for follow-up breast examination. She should continue her follow-up with Dr. James. Follow-up mammogram recommended in November 2023. Coding Level of Care Code Est Pt Level 3 (40333) Diagnoses History of bilateral breast cancer Z85.3 Cancer C80.1
[2023-04-25 09:58] VITALS: BP 153/85; PULSE 74; BMI 25.1
== END 2023-04-25 11:34 | disposition home or self-care (01) ==
PROVIDERS: PCP Internal Medicine; Visit Provider Surgery
DX: Z85.3 Personal history of malignant neoplasm of breast (principal)
CPT/HCPCS: 99213

== ENCOUNTER 2023-10-16 10:25 | Outpatient (REF) | payer MEDICARE, SELFPAY ==
--- NOTE | ~2023-10-16 | US_ITS ---
EXAMINATION: US RETROPERITONEAL LIMITED (RENAL ONLY) CLINICAL INFORMATION: Calculus of kidney. COMPARISON: Renal ultrasound 04/10/2023 and 10/14/2022. X-ray abdomen 07/12/2020 and 06/02/2020. TECHNIQUE: Real-time imaging of the kidneys. FINDINGS: RIGHT KIDNEY: 8 x 3.8 x 4 cm (SAG x AP x TRV). The kidney is normal in size, contour, and echogenicity. Renal cortical thickness is normal. 3 stones measuring 2 mm in the midpole, 6 x 2 x 5 mm in the lower pole and 2 x 1 x 3 mm in the lower pole. Small 7 mm cyst exophytic to the upper pole. No imaging follow-up recommended. No hydronephrosis. LEFT KIDNEY: 9.8 x 4.8 x 5 cm (SAG x AP x TRV). The kidney is normal in size, contour, and echogenicity. Renal cortical thickness is normal. 2 small 2 mm stones in the mid to lower pole. No focal parenchymal lesions or hydronephrosis. US/US renal BI IMPRESSION: I lateral renal stones, largest measuring 6 x 2 x 5 mm in the right lower pole.
== END 2023-10-16 10:26 | disposition home or self-care (01) ==
LOC: HO.US 10:25
PROVIDERS: PCP Internal Medicine; Visit Provider Urology
DX: N20.0 Calculus of kidney (principal)
CPT/HCPCS: 76775

== ENCOUNTER 2023-11-04 09:24 | Outpatient (AMB) | payer MEDICARE, SELFPAY ==
--- NOTE | 2023-11-04 09:25 | A.OFFVIS_ITS ---
Intake Intake Visit Reasons: 6M US(SET)Confirmed Intake Note: Patient is Present for Telephone Follow Up Ultrasound Urology Med: Vitamin B6 Antibiotic Allergy: Sulfa antibiotics Blood Thinner: None Confirmed Pharmacy: [facility] [place]. [place] Allergies Sulfa (Sulfonamide Antibiotics) [SULFA (SULFONAMIDE ANTIBIOTICS)] Allergy (Intermediate, Verified 11/04/23 09:26) RASH Medication List - Last Reconciled 11/04/23 by Michele Jarquin MD cyanocobalamin (vitamin B-12) 5,000 mcg PO DAILY indapamide 2.5 mg PO DAILY 90 days levothyroxine 1 tab PO DAILY paroxetine HCl 1 tab PO DAILY potassium citrate ER 10 mEq PO BID pyridoxine (vitamin B6) 100 mg PO DAILY 90 days rosuvastatin 1 tab PO DAILY HPI HPI Comments History of Present Illness Details Carie Villatoro is a very pleasant female. She is a patient of Dr. Gandhi. She is seen for the following urologic conditions. - nephrolithiasis Telemedicine Evaluation 15 min Consultation [employer] Jesus Video attempted Continues B6, and indapamide Increased urinary volume by drinking 3 16 oz bottles of fluid per day 6 month review Nephrolithiasis/Urolithiasis: They are here for further evaluation of nephrolithiasis - stable, no stones - continue indapamide and vit B6. Urolithiasis was diagnosed 2011 - had urosepsis. The patient previously had kidney stones whose composition w calcium oxalate, calcium phosphate - hydroxyapatite, diagnosed after surgical stone removal. Laboratory investigations include Base line serum evaluation, Normocalcemia (9.0), Normal PTH, Normal uric acid - 02/28 Ca 10.8, PTH 120 24 Hour urine evaluation January 2016 - Low Urine volume < 2.0 liters, Hyperaclicuria (> 200mg), High oxalate > 30mg, Low urine pH < 5.13 Jul 2016 , Low Urine volume < 2.0 liters, Low calcium < 200, stable oxalate, good pH. - 09/30 low volume 1.2, high oxalate, low citrate 385 Prior treatment(s) include right, PCNL, with dietary advice to increase fluids, decrease salt and watch protein intake- Admission to [facility] with urosepsis of November 201208/24 - add indapamide and Vit B6. Prior imaging includes a KUB x-ray November 2014 negative, January 2016 negative , a renal ultrasound 11/22 2mm left stone 02/22 , a renal ultrasound 2x5mm on right 03/24 CT with focal scarring on left, right small calcification 08/25 , a KUB x-ray, showing no evidence of stones 06/26 , a renal ultrasound, showing no evidence of stones 05/28 , a renal ultrasound, right 9 mm upper pole stone - 12/27 renal ultrasound bilateral small stones - 10/31 renal ultrasound bilateral 5 mm stones - 11/01 renal ultrasound bilateral stones largest right side 5 mm Current therapeutic plan will be to continue with imaging surveillance [facility] Medical History Aortic valvular disease Arrhythmia Cancer Diabetes Elevated cholesterol HTN (hypertension) Hx of radiation therapy Hx of renal calculi Thyroid disease Surgical History H/O colonoscopy History of breast lump/mass excision Hx of appendectomy Hx of lithotripsy Family History Father Dementia Brother Heart disease Social History Household Members: Significant Other Housing: House Alcohol intake: former Patient Tobacco Use Status: Former Tobacco user service: No Current occupational status: retired Review of Systems Const All systems reviewed & are unremarkable except as noted in HPI and below Reports no additional complaints Resp Reports no additional complaints GI Reports no additional complaints Reports as per HPI Musc Reports no additional complaints Physical Exam Telemedicine evaluation Appropriate responses Regular breathing rate and rhythm HEENT Head: Yes normal to inspection Ears: hearing grossly normal bilaterally Eyes General: appearance normal, both eyes and all related structures Neck Neck: Yes normal visual inspection Chest Chest palpation & inspection: normal inspection of the chest Resp Effort & Inspection: normal respiratory effort and able to speak in complete sentences Assessment & Plan Assessment & Plan (1) Nephrolithiasis: Code(s): N20.0 - Calculus of kidney Plan Six-month follow-up ultrasound Orders: Orders US renal BI 6 Months N20.0 - Calculus of kidney Medications: Refilled indapamide 2.5 mg PO DAILY 90 tabs 1RF 90 days N20.0 - Calculus of kidney Patient Instructions: Imaging studies, laboratory and physical exam results were discussed and reviewed in detail. No major barriers to patient understanding were identified. An opportunity to ask questions regarding the treatment plan was provided. All questions were answered. The patient expressed understanding and agreement with the above treatment plan. The patient is aware they should contact our office by phone for worsening of their current condition or the appearance of new urologic symptoms. Compliance is encouraged with any medications and followup testing that is ordered. It is a privilege to participate in the urologic care of your patient. If you have any questions or concerns regarding treatment for the above conditions, or other urologic issues, please do not hesitate to contact me. The office telephone contact is [phone]. This note is constructed using voice recognition software. While every effort has been made to ensure accuracy vehicle calibration engineer errors may have been included. Yours sincerely, Dr Michele Jarquin MD, [facility] - Urology Providers of Expert, Compassionate Care for the Genitourinary System Telehealth Telehealth Location of provider rendering services: practice address Location of patient: address on file Patient Identification confirmed using: Name, : Yes Telehealth method: video Patient verbally consented to treatment: Yes Patient verbally consented to billing insurance company: Yes Patient informed of any privacy concerns related to visit: Yes Coding Level of Care Code Tele Est Pt Level 3 (53533) Diagnoses Nephrolithiasis N20.0
== END 2023-11-04 10:27 | disposition home or self-care (01) ==
LOC: HO.HUSH 09:25
PROVIDERS: PCP Internal Medicine; Visit Provider Urology
DX: N20.0 Calculus of kidney (principal)
CPT/HCPCS: 99213

== ENCOUNTER → 2023-11-04 09:24 | Outpatient (BNVA) | payer MEDICARE, SELFPAY | PROVIDERS: PCP Internal Medicine; Visit Provider Urology ==

== ENCOUNTER 2023-12-19 08:10 | Outpatient (REF) | payer MEDICARE, SELFPAY ==
--- NOTE | ~2023-12-19 | MM_ITS ---
EXAMINATION: MM SCREENING DIGITAL BREAST TOMOSYNTHESIS, BILATERAL CLINICAL INFORMATION: Screening. Asymptomatic. The patient is status post right breast surgery for prior treatment of cancer in 2017. The patient also has a history of prior left breast excision in the remote past. COMPARISON: Mammography: This study is compared with prior exams dating back to 2019. TECHNIQUE: Digital breast tomosynthesis is performed in both the craniocaudal and mediolateral oblique views along with computer-aided detection (CAD). Synthesized 2D images are generated from the tomosynthesis. FINDINGS: There are scattered areas of fibroglandular density (ACR BI-RADS breast composition Category b). There are no significant masses, abnormal calcifications, or other abnormalities. There are bilateral, coarse benign calcifications. There is the residuum of a surgically placed BioZorb device in the treatment bed of the right breast, medially. There are architectural changes in the right axilla and inferomedial aspect of the right breast related to the prior cancer surgery. There are 2 tissue markers in the lateral aspect of the right breast from prior percutaneous biopsies. There is architectural change in the upper-outer quadrant of the left breast from prior excision. MM/MM tomosynthesis screening BI IMPRESSION: No mammographic evidence of malignancy. ASSESSMENT: BI-RADS BI-RADS 2 - Benign Findings RECOMMENDATION: Routine annual mammography screening. 1 year F/U This examination should not preclude the clinical evaluation of a suspicious palpable abnormality. This patient's information was entered into a reminder system with a target due date for their next mammogram.
== END 2023-12-19 08:11 | disposition home or self-care (01) ==
LOC: HO.MAMMO 08:10
PROVIDERS: PCP Internal Medicine; Visit Provider Internal Medicine
DX: Z12.31 Encounter for screening mammogram for malignant neoplasm of breast (principal)
CPT/HCPCS: 77063; 77067

== ENCOUNTER → 2023-12-19 08:30 | Outpatient (BNV) | payer MEDICARE, SELFPAY | PROVIDERS: PCP Internal Medicine; Visit Provider Radiology Diagnostic Radiology | DX: Z12.31 Encounter for screening mammogram for malignant neoplasm of breast (principal) | CPT/HCPCS: 77063; 77067 ==

== ENCOUNTER 2024-04-30 09:22 | Outpatient (AMB) | payer MEDICARE, SELFPAY ==
--- NOTE | 2024-04-30 09:23 | MHC.OFFVIS ---
Vital Signs 04/30/24 09:30 Height 5 ft 4 in Weight 144 lb BMI 24.7 BP 176/95 H Blood Pressure Location Lt brachial Position Sitting Temp 68 F L Intake Visit Reasons: Yearly breast exam Intake Note: Patient is seen in office for yearly breast exam. Pt c/o: denies any concerns at the time of visit Stain Sprayer Required: No Armhole Feller Handstitching Machine: Armhole Feller Handstitching Machine Present Accompanied by: Self / Same As Patient Allergies Sulfa (Sulfonamide Antibiotics) [SULFA (SULFONAMIDE ANTIBIOTICS)] Allergy (Intermediate, Verified 04/30/24 09:31) RASH Medication List - Last Reconciled 04/30/24 by Tulio James MD cyanocobalamin (vitamin B-12) 5,000 mcg PO DAILY indapamide 2.5 mg PO DAILY 90 days levothyroxine 1 tab PO DAILY paroxetine HCl 1 tab PO DAILY potassium citrate ER 10 mEq PO BID pyridoxine (vitamin B6) 100 mg PO DAILY 90 days rosuvastatin 1 tab PO DAILY HPI Comments Details: Carie Villatoro returns today for a follow up breast examination, following history of bilateral breast cancer. She is an 83-year-old female patient of Dr. Gandhi and previous patient of Dr. Marrero, status post bilateral lumpectomies with needle localization and sentinel node biopsy the most recent involving the right breast performed on 08/12/2017. 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 Invasive carcinoma was 1.5 mm from the closest margin. The remaining margins are free of invasive carcinoma by at least 3 mm. DCIS was at least 3 mm from all margins. Lymphovascular invasion was not identified. 2 sentinel nodes were negative for tumor. She completed radiation therapy at [facility] in Oct, 2017 [address] was seen [address] Dr[address] James from medical oncology on December 03, 2017. She was started on Letrozole 2.5 mg daily and completed 5 years of treatment. Her previous left breast surgery was performed at [facility] when she was 38 years old. This was treated with lumpectomy without radiation therapy. She subsequently developed a recurrence in the same breast and underwent a lumpectomy followed by radiation therapy. She denies any new symptoms involving the breasts. Her last mammogram of 12/19/2023 revealed bilateral postprocedure changes but no mammographic evidence of malignancy (BI-RADS 2). [facility] Medical History Hx of radiation therapy Cancer Thyroid disease Diabetes Aortic valvular disease Hx of renal calculi Elevated cholesterol Arrhythmia HTN (hypertension) Surgical History Hx of appendectomy H/O colonoscopy History of breast lump/mass excision Hx of lithotripsy Family History Father Dementia Brother Heart disease Social History Household Members: Significant Other Housing: House Alcohol intake: former Patient Tobacco Use Status: Former Tobacco user service: No Current occupational status: retired Review of Systems Const Denies chills, Denies fever(s), Denies headache(s) and Denies poor appetite ENT Denies dizziness and Denies headache(s) Card Details: History of atrial fibrillation Denies chest pain Resp Denies chest congestion, Denies cough, Denies pain on inspiration and Denies wheezing GI Denies abdominal pain, Denies bloating, Denies change in stool character, Denies constipation, Denies diarrhea, Denies nausea, Denies vomiting and Denies hematemesis Denies nipple discharge Musc Denies back pain, Denies arthralgias, Denies joint swelling and Denies numbness Skin/Breast Denies breast swelling, Denies breast skin changes, Denies breast pain, Denies breast mass, Denies change in breast shape, Denies change in pigmentation, Denies nipple discharge, Denies erythema and Denies rash Neuro Denies confusion, Denies dizziness, Denies headache(s) and Denies numbness Psych Denies anxiety, Denies confusion and Denies depression Art/Lymph Denies easy bleeding, Denies easy bruising and Denies lymphadenopathy Aller/Immun Denies wheezing Physical Exam Const General: No confusion Nutritional Appearance: well nourished Orientation/consciousness: No confusion Eyes Sclerae: sclerae normal EOM: EOMs intact bilaterally Neck Lymphatic: no lymphadenopathy noted Chest Other: Right breast: s/p partial mastectomy, no other skin changes, no nipple retraction, no nipple discharge, no palpable mass, no palpable lymph nodes. Left Breast: No skin changes, no nipple changes, no nipple discharge, no palpable mass or axillary nodes. Resp Effort & Inspection: normal respiratory effort, no cough and no respiratory distress Cardio Jugular venous distension: no JVD Skin General skin exam: dry skin Rashes: no rashes Neuro Other: Mobility Assessment: 1. 3 meter assessment time (seconds) 7 2. 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 James). She has now completed her 5 year course. Her most recent mammogram of 12/19/2023 revealed postoperative changes but no mammographic evidence of malignancy (BI-RADS 2).. Examination today reveals no suspicious findings or evidence of recurrence disease. She should continue with self examination on a monthly basis and return approximately 1 year for follow-up breast examination. She should continue her follow-up with Dr. James. Follow-up mammogram recommended in November 2024. Coding Level of Care Code Est Pt Level 3 (13952) Diagnoses History of bilateral breast cancer Z85.3 Cancer C80.1
[2024-04-30 09:30] VITALS: BP 176/95; TEMP 20; BMI 24.7
== END 2024-04-30 09:46 | disposition home or self-care (01) ==
PROVIDERS: PCP Internal Medicine; Visit Provider Surgery
DX: Z85.3 Personal history of malignant neoplasm of breast (principal)
CPT/HCPCS: 99213

== ENCOUNTER → 2024-04-30 09:22 | Outpatient (BNVA) | payer MEDICARE, SELFPAY | PROVIDERS: PCP Internal Medicine; Visit Provider Surgery | DX: C80.1 Malignant (primary) neoplasm, unspecified (principal); Z85.3 Personal history of malignant neoplasm of breast | CPT/HCPCS: 99212 ==

== ENCOUNTER 2024-05-31 09:43 | Outpatient (REF) | payer MEDICARE, SELFPAY ==
--- NOTE | ~2024-05-31 | US_ITS ---
EXAMINATION: US RETROPERITONEAL LIMITED (RENAL ONLY) CLINICAL INFORMATION: Calculus of kidney. COMPARISON: Renal ultrasound 10/16/2023 and 04/10/2023. X-ray abdomen KUB 07/12/2020 and 06/02/2020. TECHNIQUE: Real-time imaging of the kidneys. FINDINGS: RIGHT KIDNEY: 8.1 x 3.2 x 2.8 cm (SAG x AP x TRV). The kidney is normal in size, contour, and echogenicity. Renal cortical thickness is normal. No hydronephrosis. At the interpolar aspect, an 8 mm nonobstructing calculus is seen. At the lower pole, a 3 mm nonobstructing calculus is seen. At the upper pole, an 8 mm benign, simple cyst is seen. At the lower pole, a 7 mm benign, simple cyst is seen. These require no imaging follow-up. LEFT KIDNEY: 10.1 x 4.4 x 4.5 cm (SAG x AP x TRV). The kidney is normal in size, contour, and echogenicity. Renal cortical thickness is normal. No hydronephrosis. At the lower pole, 4 mm and 2 mm nonobstructing calculi are seen. At the interpolar aspect, a 6 mm benign, simple cyst is seen, which requires no imaging follow-up. US/US renal BI IMPRESSION: There are nonobstructing bilateral renal calculi. No hydronephrosis is seen. Electronically signed by: Tulio Cleary MD 06/03/2024 04:28 PM EDT
== END 2024-05-31 09:44 | disposition home or self-care (01) ==
LOC: HO.US 09:43
PROVIDERS: PCP Internal Medicine; Visit Provider Urology
DX: N20.0 Calculus of kidney (principal)
CPT/HCPCS: 76775

== ENCOUNTER 2024-07-01 10:44 | Outpatient (AMB) | payer MEDICARE, SELFPAY ==
--- NOTE | 2024-07-01 10:48 | MHC.OFFVIS ---
Intake Visit Reasons: Ultrasound follow up(set) Intake Note: Patient is present for Ultrasound follow up Urology Med: Vitamin B6, Indapamide Hospitality Team Member Required: No Allergies Sulfa (Sulfonamide Antibiotics) [SULFA (SULFONAMIDE ANTIBIOTICS)] Allergy (Intermediate, Verified 04/30/24 09:31) RASH HPI Comments Details: Carie Villatoro is a very pleasant female. She is a patient of Dr. Gandhi. She is seen for the following urologic conditions. - nephrolithiasis Ultrasound remains stable Continues B6, and indapamide Increased urinary volume by drinking 3 16 oz bottles of fluid per day 6 month review Nephrolithiasis/Urolithiasis: They are here for further evaluation of nephrolithiasis - continue indapamide and vit B6. Urolithiasis was diagnosed 2011 - had urosepsis. The patient previously had kidney stones whose composition w calcium oxalate, calcium phosphate - hydroxyapatite, diagnosed after surgical stone removal. Laboratory investigations include Base line serum evaluation, Normocalcemia (9.0), Normal PTH, Normal uric acid - 02/28 Ca 10.8, PTH 120 - 03/01 Ca 10.4 24 Hour urine evaluation January 2016 - Low Urine volume < 2.0 liters, Hyperaclicuria (> 200mg), High oxalate > 30mg, Low urine pH < 5.13 Jul 2016 , Low Urine volume < 2.0 liters, Low calcium < 200, stable oxalate, good pH. - 09/30 low volume 1.2, high oxalate, low citrate 385 Prior treatment(s) include right, PCNL, with dietary advice to increase fluids, decrease salt and watch protein intake- Admission to [facility] with urosepsis of November 201208/24 - add indapamide and Vit B6. Prior imaging includes a KUB x-ray November 2014 negative, January 2016 negative , a renal ultrasound 11/22 2mm left stone 02/22 , a renal ultrasound 2x5mm on right 03/24 CT with focal scarring on left, right small calcification 08/25 , a KUB x-ray, showing no evidence of stones 06/26 , a renal ultrasound, showing no evidence of stones 05/28 , a renal ultrasound, right 9 mm upper pole stone - 12/27 renal ultrasound bilateral small stones - 10/31 renal ultrasound bilateral 5 mm stones - 11/01 renal ultrasound bilateral stones largest right side 5 mm - 07/01 renal ultrasound bilateral small stones. 8 mm right, 4 mm left Current therapeutic plan will be to continue with imaging surveillance [facility] Medical History Hx of radiation therapy Cancer Thyroid disease Diabetes Aortic valvular disease Hx of renal calculi Elevated cholesterol Arrhythmia HTN (hypertension) Surgical History Hx of appendectomy H/O colonoscopy History of breast lump/mass excision Hx of lithotripsy Family History Father Dementia Brother Heart disease Social History Household Members: Significant Other Housing: House Alcohol intake: former Patient Tobacco Use Status: Former Tobacco user service: No Current occupational status: retired Review of Systems Const Denies chills and Denies fever(s) Card Reports no additional complaints and Denies syncope Resp Denies cough GI Denies abdominal pain and Denies heartburn Reports as per HPI and Denies change in libido Neuro Denies syncope Psych Denies change in libido Endo Denies change in libido Physical Exam Const General: cooperative, healthy appearing, comfortable and no acute distress Orientation/consciousness: patient oriented x3 HEENT Face and sinus: Yes normal facial exam Mouth: moist mucous membranes Neck Neck: Yes normal visual inspection, Yes full ROM and Yes trachea midline Chest Chest palpation & inspection: normal inspection of the chest Resp Effort & Inspection: normal respiratory effort, able to speak in complete sentences and no respiratory distress GI Inspection: Yes normal to inspection Back/Spine/Pelvis Cervical Spine: normal cervical lordosis Thoracic/Lumbar Spine: thoracic and lumbar spine normal to inspection Skin General skin exam: no rashes or lesions noted Neuro General: patient oriented x3, gait normal, tone normal and moves all extremities Extrem General: Yes normal to inspection and Yes capillary refill normal Assessment & Plan Assessment & Plan (1) Nephrolithiasis: Code(s): N20.0 - Calculus of kidney Category: Medical (2) Hyperparathyroidism: Code(s): E21.3 - Hyperparathyroidism, unspecified Category: Medical Plan Six-month follow-up lab work and imaging Orders: Orders US renal BI 6 Months N20.0 - Calculus of kidney Calcium 6 Months N20.0 - Calculus of kidney Parathyroid Hormone Intact 6 Months N20.0 - Calculus of kidney Patient Instructions: Imaging studies, laboratory and physical exam results were discussed and reviewed in detail. No major barriers to patient understanding were identified. An opportunity to ask questions regarding the treatment plan was provided. All questions were answered. The patient expressed understanding and agreement with the above treatment plan. The patient is aware they should contact our office by phone for worsening of their current condition or the appearance of new urologic symptoms. Compliance is encouraged with any medications and followup testing that is ordered. It is a privilege to participate in the urologic care of your patient. If you have any questions or concerns regarding treatment for the above conditions, or other urologic issues, please do not hesitate to contact me. The office telephone contact is [phone]. This note is constructed using voice recognition software. While every effort has been made to ensure accuracy periodicals library assistant errors may have been included. Yours sincerely, Dr Michele Jarquin MD, [facility] - Urology Providers of Expert, Compassionate Care for the Genitourinary System Coding Level of Care Code Est Pt Level 3 (04278) Diagnoses Nephrolithiasis N20.0 Hyperparathyroidism E21.3
== END 2024-07-01 11:12 | disposition home or self-care (01) ==
PROVIDERS: PCP Internal Medicine; Visit Provider Urology
DX: N20.0 Calculus of kidney (principal); E21.3 Hyperparathyroidism, unspecified
CPT/HCPCS: 99213

== ENCOUNTER → 2024-07-01 10:44 | Outpatient (BNVA) | payer MEDICARE, SELFPAY | PROVIDERS: PCP Internal Medicine; Visit Provider Urology | DX: N20.0 Calculus of kidney (principal); E21.3 Hyperparathyroidism, unspecified | CPT/HCPCS: 99212 ==

== ENCOUNTER 2024-12-10 09:48 | Outpatient (REF) | payer MEDICARE, SELFPAY ==
--- NOTE | ~2024-12-10 | US_ITS ---
EXAMINATION: US KIDNEY BILATERAL HISTORY: N20.0 - Calculus of kidney TECHNIQUE: Real-time grayscale ultrasound imaging of the kidneys was performed and images were reviewed. COMPARISON: Comparison is made with the prior examination dated 05/31/2024. FINDINGS: Right kidney: The right kidney measures 8.1 x 3.5 x 3.9 cm. Renal parenchymal echotexture and thickness are normal. There is a 7 x 6 x 7 mm upper pole cyst and a 7 x 5 x 5 mm lower pole cyst. Multiple nonobstructing calculi are identified including an 8 x 3 x 6 mm calculus in the interpolar region and multiple lower pole calculi measuring 3 x 1 x 3 mm and 3 x 2 x 2 mm. There is mild fullness of the renal pelvis without hydronephrosis. Left Kidney: The left kidney measures 10.0 x 4.5 x 4.1 cm. Renal parenchymal echotexture and thickness are normal. There is a 6 x 5 x 5 mm cyst in the interpolar region. There is no hydronephrosis or renal calculi. US/US renal BI IMPRESSION: Bilateral renal cysts as described. Nonobstructing right renal calculi. Electronically signed by: Drake Montanez MD 12/10/2024 11:08 AM EDT
== END 2024-12-10 09:49 | disposition home or self-care (01) ==
LOC: HO.US 09:48
PROVIDERS: PCP Internal Medicine; Visit Provider Urology
DX: N20.0 Calculus of kidney (principal)
CPT/HCPCS: 76775

== ENCOUNTER → 2024-12-10 09:50 | Outpatient (BNV) | payer MEDICARE, SELFPAY | PROVIDERS: PCP Internal Medicine; Visit Provider Radiology Diagnostic Radiology | DX: N20.0 Calculus of kidney (principal) | CPT/HCPCS: 76775 ==

== ENCOUNTER 2024-12-24 08:08 | Outpatient (REF) | payer MEDICARE, SELFPAY | END 2024-12-24 08:09 | disposition home or self-care (01) | LOC: HO.MAMMO 08:08 | PROVIDERS: PCP Internal Medicine; Visit Provider Internal Medicine | DX: Z12.31 Encounter for screening mammogram for malignant neoplasm of breast (principal) | CPT/HCPCS: 77063; 77067 ==

== ENCOUNTER → 2024-12-24 08:30 | Outpatient (BNV) | payer MEDICARE, SELFPAY | PROVIDERS: PCP Internal Medicine; Visit Provider Internal Medicine | DX: Z12.31 Encounter for screening mammogram for malignant neoplasm of breast (principal) | CPT/HCPCS: 77063; 77067 ==

== ENCOUNTER 2024-12-31 10:26 | Outpatient (AMB) | payer MEDICARE, SELFPAY ==
--- NOTE | 2024-12-31 10:28 | MHC.OFFVIS ---
Intake Visit Reasons: 6m/US/labs Intake Note: Patient is present for a 6 month follow up/US/Labs Urology Med: Vitamin B6, Potassium Blood Thinner:none Allergy to Antibiotic: Sulfa Pharmacy Benefit Manager Required: No Allergies Sulfa (Sulfonamide Antibiotics) [SULFA (SULFONAMIDE ANTIBIOTICS)] Allergy (Intermediate, Verified 12/31/24 10:32) RASH HPI Comments Details: Carie Villatoro is a very pleasant female. She is a patient of Dr. Gandhi. She is seen for the following urologic conditions. - nephrolithiasis Ultrasound remains stable Continues B6, and indapamide Increased urinary volume by drinking 3 16 oz bottles of fluid per day 6 month review with Uro risk, lab work for prior parathyroid Nephrolithiasis/Urolithiasis: Prior elevated parathyroid They are here for further evaluation of nephrolithiasis - continue indapamide and vit B6. Urolithiasis was diagnosed 2011 - had urosepsis. The patient previously had kidney stones whose composition w calcium oxalate, calcium phosphate - hydroxyapatite, diagnosed after surgical stone removal. Laboratory investigations include Base line serum evaluation, Normocalcemia (9.0), Normal PTH, Normal uric acid - 02/28 Ca 10.8, PTH 120 - 03/01 Ca 10.4 24 Hour urine evaluation January 2016 - Low Urine volume < 2.0 liters, Hyperaclicuria (> 200mg), High oxalate > 30mg, Low urine pH < 5.13 Jul 2016 , Low Urine volume < 2.0 liters, Low calcium < 200, stable oxalate, good pH. - 09/30 low volume 1.2, high oxalate, low citrate 385 Prior treatment(s) include right, PCNL, with dietary advice to increase fluids, decrease salt and watch protein intake- Admission to [facility] with urosepsis of November 201208/24 - add indapamide and Vit B6. Prior imaging includes a KUB x-ray November 2014 negative, January 2016 negative , a renal ultrasound 11/22 2mm left stone 02/22 , a renal ultrasound 2x5mm on right 03/24 CT with focal scarring on left, right small calcification 08/25 , a KUB x-ray, showing no evidence of stones 06/26 , a renal ultrasound, showing no evidence of stones 05/28 , a renal ultrasound, right 9 mm upper pole stone - 12/27 renal ultrasound bilateral small stones - 10/31 renal ultrasound bilateral 5 mm stones - 11/01 renal ultrasound bilateral stones largest right side 5 mm - 07/01 renal ultrasound bilateral small stones. 8 mm right, 4 mm left - 12/31 renal ultrasound - no stones on left, small stones on right Current therapeutic plan will be to continue with imaging surveillance [facility] Medical History Hx of radiation therapy Cancer Thyroid disease Diabetes Aortic valvular disease Hx of renal calculi Elevated cholesterol Arrhythmia HTN (hypertension) Surgical History Hx of appendectomy H/O colonoscopy History of breast lump/mass excision Hx of lithotripsy Family History Father Dementia Brother Heart disease Social History Household Members: Significant Other Housing: House Alcohol intake: former Patient Tobacco Use Status: Former Tobacco user service: No Current occupational status: retired Review of Systems Const Denies chills and Denies fever(s) Card Reports no additional complaints and Denies syncope Resp Denies cough GI Denies abdominal pain and Denies heartburn Reports as per HPI and Denies change in libido Neuro Denies syncope Psych Denies change in libido Endo Denies change in libido Physical Exam Const General: cooperative, healthy appearing, comfortable and no acute distress Orientation/consciousness: patient oriented x3 HEENT Face and sinus: Yes normal facial exam Mouth: moist mucous membranes Neck Neck: Yes normal visual inspection, Yes full ROM and Yes trachea midline Chest Chest palpation & inspection: normal inspection of the chest Resp Effort & Inspection: normal respiratory effort, able to speak in complete sentences and no respiratory distress GI Inspection: Yes normal to inspection Back/Spine/Pelvis Cervical Spine: normal cervical lordosis Thoracic/Lumbar Spine: thoracic and lumbar spine normal to inspection Skin General skin exam: no rashes or lesions noted Neuro General: patient oriented x3, gait normal, tone normal and moves all extremities Extrem General: Yes normal to inspection and Yes capillary refill normal Assessment & Plan Assessment & Plan (1) Nephrolithiasis: Code(s): N20.0 - Calculus of kidney Category: Medical (2) Hyperparathyroidism: Code(s): E21.3 - Hyperparathyroidism, unspecified Category: Medical Plan Six-month follow-up lab work imaging Orders: Orders Calcium 6 Months N20.0 - Calculus of kidney Vitamin D 25-OH Total 6 Months N20.0 - Calculus of kidney URORISK Today N20.0 - Calculus of kidney Parathyroid Hormone Intact 6 Months N20.0 - Calculus of kidney US renal BI 6 Months N20.0 - Calculus of kidney Patient Instructions: This note is constructed using voice recognition software. While every effort has been made to ensure accuracy sailing instructor errors may have been included. Imaging studies, laboratory and physical exam results were discussed and reviewed in detail. No major barriers to patient understanding were identified. An opportunity to ask questions regarding the treatment plan was provided. All questions were answered. The patient expressed understanding and agreement with the above treatment plan. The patient is aware they should contact our office by phone for worsening of their current condition or the appearance of new urologic symptoms. Compliance is encouraged with any medications and followup testing that is ordered. It is a privilege to participate in the urologic care of your patient. If you have any questions or concerns regarding treatment for the above conditions, or other urologic issues, please do not hesitate to contact me. The office telephone contact is [phone]. Sincerely, Dr Michele Jarquin MD, [facility] - Urology Compassionate Specialist Care for the Genitourinary System Coding Level of Care Code Est Pt Level 3 (22449) Complex EM visit Add On G2211 Diagnoses Nephrolithiasis N20.0 Hyperparathyroidism E21.3
== END 2024-12-31 10:51 | disposition home or self-care (01) ==
LOC: HO.HUSH 10:26
PROVIDERS: PCP Internal Medicine; Visit Provider Urology
DX: N20.0 Calculus of kidney (principal); E21.3 Hyperparathyroidism, unspecified
CPT/HCPCS: 99213; G2211

== ENCOUNTER → 2024-12-31 10:26 | Outpatient (BNVA) | payer MEDICARE, SELFPAY | PROVIDERS: PCP Internal Medicine; Visit Provider Urology | DX: N20.0 Calculus of kidney (principal); E21.3 Hyperparathyroidism, unspecified | CPT/HCPCS: 99212 ==

== ENCOUNTER 2025-04-22 09:16 | Outpatient (AMB) | payer MEDICARE, SELFPAY ==
--- NOTE | 2025-04-22 09:27 | MHC.OFFVIS ---
Vital Signs 04/22/25 09:41 Height 5 ft 4 in Weight 153 lb 2 oz BMI 26.3 BP 102/62 Blood Pressure Location Lt brachial Position Sitting Pulse 72 Intake Visit Reasons: Yearly breast exam Intake Note: Patient is seen in office for yearly breast exam. Patient c/o: no changes or concerns since last visit mm:12/24/24 Landscape Painter Required: No Accompanied by: Self / Same As Patient Allergies Sulfa (Sulfonamide Antibiotics) (SULFA (SULFONAMIDE ANTIBIOTICS)) Allergy (Intermediate, Verified 04/22/25 09:39) RASH Medication List - Last Reconciled 04/22/25 by Tulio James MD indapamide 2.5 mg PO DAILY 90 days levothyroxine 1 tab PO DAILY olmesartan (Benicar) 20 mg PO DAILY paroxetine HCl 1 tab PO DAILY potassium citrate ER 20 mEq (2 x 10 mEq (1,080 mg)) PO BID 90 days pyridoxine (vitamin B6) 100 mg PO DAILY 90 days rosuvastatin 1 tab PO DAILY HPI Comments Details: Carie Villatoro returns today for a follow up breast examination, following history of bilateral breast cancer. She is an 84-year-old female patient of Dr. Gandhi and previous patient of Dr. Marrero, status post bilateral lumpectomies with needle localization and sentinel node biopsy the most recent involving the right breast performed on 08/12/2017. 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 Invasive carcinoma was 1.5 mm from the closest margin. The remaining margins are free of invasive carcinoma by at least 3 mm. DCIS was at least 3 mm from all margins. Lymphovascular invasion was not identified. 2 sentinel nodes were negative for tumor. She completed radiation therapy at [facility] in Oct, 2017 and was seen [address] Dr[address] James from medical oncology on December 03, 2017. She was started on Letrozole 2.5 mg daily and completed 5 years of treatment. Her previous left breast surgery was performed at [facility] when she was 38 years old. This was treated with lumpectomy without radiation therapy. She subsequently developed a recurrence in the same breast and underwent a lumpectomy followed by radiation therapy. She denies any new symptoms involving the breasts. Her last mammogram of 12/24/2024 revealed no mammographic evidence of malignancy (BI-RADS 2). She reports traveling to visit a friend and [place] for 2 weeks soon. [facility] Medical History Hx of radiation therapy Cancer Thyroid disease Diabetes Aortic valvular disease Hx of renal calculi Elevated cholesterol Arrhythmia HTN (hypertension) Surgical History Hx of appendectomy H/O colonoscopy History of breast lump/mass excision Hx of lithotripsy Family History Father Dementia Brother Heart disease Social History Household Members: Significant Other Housing: House Alcohol intake: former Patient Tobacco Use Status: Former Tobacco user service: No Current occupational status: retired Review of Systems Const Denies chills, Denies fever(s), Denies headache(s) and Denies poor appetite ENT Denies dizziness and Denies headache(s) Card Details: History of atrial fibrillation Denies chest pain Resp Denies chest congestion, Denies cough, Denies pain on inspiration and Denies wheezing GI Denies abdominal pain, Denies bloating, Denies change in stool character, Denies constipation, Denies diarrhea, Denies nausea, Denies vomiting and Denies hematemesis Denies nipple discharge Musc Denies back pain, Denies arthralgias, Denies joint swelling and Denies numbness Skin/Breast Denies breast swelling, Denies breast skin changes, Denies breast pain, Denies breast mass, Denies change in breast shape, Denies change in pigmentation, Denies nipple discharge, Denies erythema and Denies rash Neuro Denies confusion, Denies dizziness, Denies headache(s) and Denies numbness Psych Denies anxiety, Denies confusion and Denies depression Art/Lymph Denies easy bleeding, Denies easy bruising and Denies lymphadenopathy Aller/Immun Denies wheezing Physical Exam Vital Signs: Last Vital Signs Pulse 72 04/22/25 09:41 BP 102/62 04/22/25 09:41 BMI result Body Mass Index 26.3 Const General: No confusion Nutritional Appearance: well nourished Orientation/consciousness: No confusion Eyes Sclerae: sclerae normal EOM: EOMs intact bilaterally Neck Lymphatic: no lymphadenopathy noted Chest Other: Right breast: s/p partial mastectomy, no other skin changes, no nipple retraction, no nipple discharge, no palpable mass, no palpable lymph nodes. Left Breast: No skin changes, no nipple changes, no nipple discharge, no palpable mass or axillary nodes. Resp Effort & Inspection: normal respiratory effort, no cough and no respiratory distress Cardio Jugular venous distension: no JVD Skin General skin exam: dry skin Rashes: no rashes Neuro Other: Mobility Assessment: 1. 3 meter assessment time (seconds) 7 2. 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 James). She has now completed her 5 year course. Her most recent mammogram of 12/24/2024 revealed postoperative changes but no mammographic evidence of malignancy (BI-RADS 2).. Examination today reveals no suspicious findings or evidence of recurrence disease. She should continue with self examination on a monthly basis and return approximately 1 year for follow-up breast examination. She should continue her follow-up with Dr. James. Follow-up mammogram recommended in November 2025. Coding Level of Care Code Est Pt Level 3 (22790) Complex EM visit Add On G2211 Diagnoses History of bilateral breast cancer Z85.3 Cancer C80.1
--- OUTSIDE RECORDS SUMMARY | 2025-04-22 09:31 | XMS_ITS | Clinical Summary ---
Author Organization [facility] Address [address] [place] [id number] Phone Care Team Providers Care Ecommerce Merchandising Manager Name Role Phone Sammy Morales MD Primary Care Provider Unavailable Allergies Active Allergy Reactions Criticality Noted Date Comments Sulfa (Sulfonamide Antibiotics) Rash Low 11/2017 Medications PARoxetine (PAXIL) 30 MG tabletIndications: depression Take 30 mg by mouth every morning. Indications: depression Active levothyroxine (SYNTHROID, LEVOTHROID) 75 MCG tabletIndications: hypothyroidism Take 75 mcg by mouth every morning. Indications: HYPOTHYROIDISM Active warfarin (COUMADIN) 1 MG tabletIndications: prevent thromboembolism in chronic atrial fibrillation Take 1 mg by mouth daily. Indications: PREVENT THROMBOEMBOLISM IN CHRONIC ATRIAL FIBRILLATION Active rosuvastatin (CRESTOR) 10 MG tabletIndications: hyperlipidemia Take 10 mg by mouth daily. Indications: hyperlipidemia Active cephalexin (KEFLEX) 250 MG capsuleIndications :pre and post dental visits Take 500 mg by mouth 2 (two) times a day as needed. Indications: pre and post dental visits Active pyridoxine, vitamin B6, (B-6) 100 MG tablet Take 100 mg by mouth daily. Active cholecalciferol (VITAMIN D3) 1,000 unit tablet Take 1,000 Units by mouth daily. Active omega 3-mwi-jou-fish oil 1,000 mg (120 mg-180 mg) Cap Take 1 capsule by mouth daily. Active calcium acetate (PHOSLO) 667 mg (169 mg elemental) capsule Take 1,334 mg by mouth daily. Active Active Problems Problem Noted Date Diagnosed Date Malignant neoplasm of lower- inner quadrant of right breast of female, estrogen receptor positive 09/11/2017 Family History Medical History Relation Comments CABG Brother Cancer Sister 1 Relation Status Comments Brother Father Mother Sister 1 Sister 2 Social History Tobacco Use Types Packs/Day Years [...] on file Sexual Orientation Not on file Last Filed Vital Signs Vital Sign Reading Time Taken Comments Blood Pressure 130/85 11/21/2017 2:11 PM EDT Pulse 78 11/21/2017 2:11 PM EDT Temperature 36.4 C (97.6 F) 11/21/2017 2:11 PM EDT Respiratory Rate 18 11/21/2017 2:11 PM EDT Oxygen Saturation 95% 09/10/2017 1:08 PM EST Inhaled Oxygen Concentration - - Weight 83.9 kg (185 lb) 11/21/2017 2:11 PM EDT Height 160 cm (5' 3 ) 11/21/2017 2:11 PM EDT Body Mass Index 32.77 11/21/2017 2:11 PM EDT Plan of Treatment Health Maintenance Due Date Last Done Comments Adult Td,Tdap Booster 1938 TSH LEVEL 1938 DEPRESSION SCREENING 1950 PNEUMOCOCCAL VACCINES (50+ years) (1 of 2 - PCV) 1957 OSTEOPOROSIS SCREENING INITI AL (ONE-TIME) 2003 RSV VACCINE (1 - 1-dose 75+ series) 2013 COVID-19 VACCINE (2 - 2023-2 5 season) 2024 12/08/2020 ZOSTER VACCINES Completed 08/28/2020, 05/23/2020, 11/27/2012 HEPATITIS A VACCINES Aged Out No long er eligible based on patient's age to complete this topic HIB VACCINES Aged Out No longer eligi ble based on patient's age to complete this topic MENINGOCOCCAL VACCINES (ACWY) Aged Out No longer eligible based on patient's age to complete this topic MENINGOCOCCAL VACCINES (B) Aged Out N o longer eligible based on patient's age to complete this topic Medical Devices Implanted Type Area Professor Of Fine Art Device Identifier Shelf Expiration Date Model / Serial / Lot Prosthetic Joint Prosthetic Joint Insurance Advance Directives For more information, please contact: [phone] (9AM - 5PM [facility], Friday-Friday) Documents on File Type Date Recorded Patient Vacation Guide Expl anation Healthcare Proxy 09/10/2017 1:06 PM Care Teams Ecommerce Merchandising Manager Relationship Specialty Start Date End Date Sammy Morales MD PCP - General Internal Medicine 08/20/17 Additional Source Comments The information contained in this document represents components of the legal health record. It is not the complete legal health record.[facility]
[2025-04-22 09:41] VITALS: BP 102/62; PULSE 72; BMI 26.3
== END 2025-04-22 09:50 | disposition home or self-care (01) ==
LOC: HO.HGS 09:17
PROVIDERS: PCP Internal Medicine; Visit Provider Surgery
DX: Z85.3 Personal history of malignant neoplasm of breast (principal); C80.1 Malignant (primary) neoplasm, unspecified
CPT/HCPCS: 99213; G2211

== ENCOUNTER → 2025-04-22 09:16 | Outpatient (BNVA) | payer MEDICARE, SELFPAY | PROVIDERS: PCP Internal Medicine; Visit Provider Surgery | DX: Z12.39 Encounter for other screening for malignant neoplasm of breast (principal); Z85.3 Personal history of malignant neoplasm of breast; C80.1 Malignant (primary) neoplasm, unspecified | CPT/HCPCS: 99212 ==

== ENCOUNTER 2025-06-24 10:47 | Outpatient (REF) | payer MEDICARE, SELFPAY ==
--- NOTE | ~2025-06-24 | US_ITS ---
CLINICAL HISTORY: N20.0 - Calculus of kidney US Renal Comparison: None provided Findings: Right kidney normal size and echotexture, 7.9 cm length. Left kidney normal size and echotexture, 10.0 cm length. There are bilateral renal parenchymal calculi. No collecting system dilatation of either kidney. Normal color Doppler. IMPRESSION: 1. Bilateral renal parenchymal calculi. No acute findings This document has been electronically signed by: López Dumas MD on 06/26/2025 09:46:08
[2025-06-24 13:58] LABS: Calcium 9.3 mg/dL (8.4-10.2)
[2025-06-24 15:50] LABS: Parathyroid Hormone Intact 103.1 pg/mL (8.7-77.1)
== END 2025-06-24 10:48 | disposition home or self-care (01) ==
LOC: HO.US 10:47
PROVIDERS: PCP Internal Medicine; Visit Provider Urology
DX: N20.0 Calculus of kidney (principal)
CPT/HCPCS: 36415; 76775; 82306; 82310; 83970

== ENCOUNTER → 2025-06-24 10:49 | Outpatient (BNV) | payer MEDICARE, SELFPAY | PROVIDERS: PCP Internal Medicine; Visit Provider Specialist | DX: N20.0 Calculus of kidney (principal) | CPT/HCPCS: 76775 ==

== ENCOUNTER 2025-07-07 11:23 | Outpatient (AMB) | payer MEDICARE, SELFPAY ==
--- OUTSIDE RECORDS SUMMARY | 2015-06-08 | XMS_ITS | Encounter Summary ---
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 Not on [email or web address] e 01/03/2023 Are you concerned about learning? Not on file 01/03/2023 No 01/03/2023 No 01/03/2023 Digital Access Answer Date Recorded No 02/01/2023 No 02/01/2023 No 02/01/2023 Reliable internet access at home? Not on file 02/01/2023 Device with a working camera? Not on file Comments No Sex and Gender Information Value Date Recorded Sex Assigned at Not on file Legal Sex Female 2:34 PM EST Gender Identity Not on file Sexual Orientation Not on file documented as of this encounter Plan of Treatment Not on file documented as of this encounter Procedures Procedure Name Priority Date/Time Associated Diagnosis Comments BI MAMMOGRAM OUTSIDE (NO INTERPRETATION) Routine 06/08/2015 12:00 AM EDT documented in this encounter Results * Mammogram Outside (No Interpretation) (06/08/2015 12:00 AM EDT) Narrative SYSTEMGENERATED, DOCUMENTATION - 08/26/2017 11:44 AM EST This study is for PACS storage only and not for interpretation. us Provider Not In System PhD IMG OUTSIDE IMAGING W /OUT INTERPRETATION Final Result documented in this encounter Visit Diagnoses Not on filedocumented in this encounter Additional Source Comments The information contained in this document represents components of the legal health record. It is not the complete legal health record.[facility]
--- OUTSIDE RECORDS SUMMARY | 2016-07-04 | XMS_ITS | Encounter Summary ---
Author Organization [facility] Address [address] [place] [phone] Phone Care Team Providers Care Straight Cutter Machine Name Role Phone Unavailable Primary Care Provider Unavailabl e Encounter Details Date Type Department Care Team (Late st Contact Info) Description 07/04/2016 Hospital Encounter [facility],Outside Imaging [address] [place] [address] System, Provider Not In, [place] [address] Social History Tobacco Use Types Packs/Day Years [...] Comments BI MAMMOGRAM OUTSIDE (NO INTERPRETATION) Routine 07/04/2016 12:00 AM EDT documented in this encounter Results * Mammogram Outside (No Interpretation) (07/04/2016 12:00 AM EDT) Narrative SYSTEMGENERATED, DOCUMENTATION - 08/26/2017 11:50 AM EST This study is for PACS storage only and not for interpretation. us Provider Not In System PhD IMG OUTSIDE IMAGING W /OUT INTERPRETATION Final Result documented in this encounter Visit Diagnoses Not on filedocumented in this encounter Additional Source Comments The information contained in this document represents components of the legal health record. It is not the complete legal health record.[facility]
--- NOTE | 2025-07-07 11:39 | A.OFFVIS_ITS ---
Intake Visit Reasons: 6m/US/labs/Litholink Intake Note: Patient is present for a 6 month follow up Imaging: Ultrasound 06/26/25 Labs done 06/17/25 Litho link 06/24/25 Labs done , Calcium 9.3, PTH 103.1 Urology Med: Vitamin B6, Calcium Blood Thinner:none Allergy to Antibiotic: Sulfa Mobile Home Installer Required: No Accompanied by: Spouse Allergies Sulfa (Sulfonamide Antibiotics) (SULFA (SULFONAMIDE ANTIBIOTICS)) Allergy (Intermediate, Verified 07/07/25 11:40) RASH HPI Comments Details: Carie Villatoro is a very pleasant female. She is a patient of Dr. Gandhi. She is seen for the following urologic conditions. - nephrolithiasis Ultrasound remains stable Uro risk shows low volume but otherwise solutes in good range No hypercalciuria despite elevated parathyroid 103 Continues B6, and indapamide Nephrolithiasis/Urolithiasis: Prior elevated parathyroid They are here for further evaluation of nephrolithiasis - continue indapamide and vit B6. Urolithiasis was diagnosed 2011 - had urosepsis. The patient previously had kidney stones whose composition w calcium oxalate, calcium phosphate - hydroxyapatite, diagnosed after surgical stone removal. Laboratory investigations include Base line serum evaluation, Normocalcemia (9.0), Normal PTH, Normal uric acid - 02/28 Ca 10.8, PTH 120 - 03/01 Ca 10.4 24 Hour urine evaluation January 2016 - Low Urine volume < 2.0 liters, Hyperaclicuria (> 200mg), High oxalate > 30mg, Low urine pH < 5.13 Jul 2016 , Low Urine volume < 2.0 liters, Low calcium < 200, stable oxalate, good pH. - 09/30 low volume 1.2, high oxalate, low citrate 385 - 05/02 low volume 1.3, low oxalate, low calcium, good citrate Prior treatment(s) include right, PCNL, with dietary advice to increase fluids, decrease salt and watch protein intake- Admission to [facility] with urosepsis of November 201208/24 - add indapamide and Vit B6. Prior imaging includes a KUB x-ray November 2014 negative, January 2016 negative , a renal ultrasound 11/22 2mm left stone 02/22 , a renal ultrasound 2x5mm on right 03/24 CT with focal scarring on left, right small calcification 08/25 , a KUB x-ray, showing no evidence of stones 06/26 , a renal ultrasound, showing no evidence of stones 05/28 , a renal ultrasound, right 9 mm upper pole stone - 12/27 renal ultrasound bilateral small stones - 10/31 renal ultrasound bilateral 5 mm stones - 11/01 renal ultrasound bilateral stones largest right side 5 mm - 07/01 renal ultrasound bilateral small stones. 8 mm right, 4 mm left - 12/31 renal ultrasound - no stones on left, small stones on right - 07/02 renal ultrasound small bilateral parenchymal stones Current therapeutic plan will be to continue with imaging surveillance [facility] Medical History Hx of radiation therapy Cancer Thyroid disease Diabetes Aortic valvular disease Hx of renal calculi Elevated cholesterol Arrhythmia HTN (hypertension) Surgical History Hx of appendectomy H/O colonoscopy History of breast lump/mass excision Hx of lithotripsy Family History Father Dementia Brother Heart disease Social History Household Members: Significant Other Housing: House Alcohol intake: former Patient Tobacco Use Status: Former Tobacco user service: No Current occupational status: retired Review of Systems Const Denies chills and Denies fever(s) Card Reports no additional complaints and Denies syncope Resp Denies cough GI Denies abdominal pain and Denies heartburn Reports as per HPI and Denies change in libido Neuro Denies syncope Psych Denies change in libido Endo Denies change in libido Physical Exam Const General: cooperative, healthy appearing, comfortable and no acute distress Orientation/consciousness: patient oriented x3 HEENT Face and sinus: Yes normal facial exam Mouth: moist mucous membranes Neck Neck: Yes normal visual inspection, Yes full ROM and Yes trachea midline Chest Chest palpation & inspection: normal inspection of the chest Resp Effort & Inspection: normal respiratory effort, able to speak in complete sentences and no respiratory distress GI Inspection: Yes normal to inspection Back/Spine/Pelvis Cervical Spine: normal cervical lordosis Thoracic/Lumbar Spine: thoracic and lumbar spine normal to inspection Skin General skin exam: no rashes or lesions noted Neuro General: patient oriented x3, gait normal, tone normal and moves all extremities Extrem General: Yes normal to inspection and Yes capillary refill normal Assessment & Plan Assessment & Plan (1) Nephrolithiasis: Code(s): N20.0 - Calculus of kidney Category: Medical Plan Continue indapamide Orders: Orders US renal BI 6 Months N20.0 - Calculus of kidney Medications: Refilled indapamide 2.5 mg PO DAILY 90 tabs 1RF 90 days N20.0 - Calculus of kidney Patient Instructions: This note is constructed using voice recognition software. While every effort has been made to ensure accuracy vacuum worker errors may have been included. Imaging studies, laboratory and physical exam results were discussed and reviewed in detail. No major barriers to patient understanding were identified. An opportunity to ask questions regarding the treatment plan was provided. All questions were answered. The patient expressed understanding and agreement with the above treatment plan. The patient is aware they should contact our office by phone for worsening of their current condition or the appearance of new urologic symptoms. Compliance is encouraged with any medications and followup testing that is ordered. It is a privilege to participate in the urologic care of your patient. If you have any questions or concerns regarding treatment for the above conditions, or other urologic issues, please do not hesitate to contact me. The office telephone contact is [phone]. Sincerely, Dr Michele Jarquin MD, [facility] - Urology Compassionate Specialist Care for the Genitourinary System Coding Level of Care Code Est Pt Level 3 (97497) Complex EM visit Add On G2211 Diagnoses Nephrolithiasis N20.0
--- OUTSIDE RECORDS SUMMARY | 2025-07-07 14:16 | XMS_ITS | Clinical Summary ---
Author Organization [facility] Address [address] [facility] [address] [place] [id number] Phone Care Team Providers Care Patient Access Name Role Phone Sammy Morales MD Primary [...] 1,000 Units by mouth daily. Active omega 7-aru-afa-fish oil 1,000 mg (120 mg-180 mg) Cap [...] VACCINE (1 - 1-dose 75+ series) 2013 INFLUENZA VACCINE (#1) 2025 06/07/2019 COVID-19 VACCINE (2 - 2024-2 6 season) 2025 12/08/2020 ZOSTER VACCINES Completed 08/28/2020, 05/23/2020, 11/27/2012 [...] this topic Medical Devices Implanted Type Area Mica Machine Operator Device Identifier Shelf Expiration Date Model / Serial / Lot Prosthetic Joint Prosthetic Joint [place] Advance Directives For more information, please contact: [phone] (9AM - 5PM [facility], Friday-Friday) Documents on File Type Date Recorded Patient Title Manager Expl anation Healthcare Proxy 09/10/2017 1:06 PM Care Teams Patient Access Relationship Specialty Start Date End Date Sammy Morales MD PCP - General Internal Medicine 08/20/17 Additional Source Comments The information contained in this document represents components of the legal health record. It is not the complete legal health record.[facility]
--- OUTSIDE RECORDS SUMMARY | 2025-07-07 14:16 | XMS_ITS | Encounter Summary ---
Author Organization [facility] Address [address] [address] Phone Care Team Providers Care Home Care Companion Name Role Phone Sammy Morales MD Primary Care Provider Unavailable Reason for Referral * - Closed Specialty Diagnoses / Procedures Referred By Contac t Referred To Contact Procedures NM Other Outside (No Interpretation) System, Provider [place] In, [place] [address] Referral ID Status Reason Start Date Expiration Date Visits Re quested Visits Authorized [id number] Closed 08/26/2017 08/26/2018 1 1 Encounter Details Date Type Department Care Team (Late st Contact Info) Description 08/26/2017 Ancillary Orders [facility],Outside Imaging [address] [place] [address] System, Provider Not In, [facility] [address] [address] Social History Tobacco Use Types Packs/Day Years Used Date Smoking Tobacco: Never Assessed Comments Unknown Sex and Gender Information Value Date Recorded Sex Assigned at Not on file Legal Sex Female 2:34 PM EST Gender Identity Not on file Sexual Orientation Not on file documented as of this encounter Plan of Treatment Not on file documented as of this encounter Results * Mammogram Outside (No Interpretation) (08/12/2017 12:15 AM EST) Narrative SYSTEMGENERATED, DOCUMENTATION - 08/26/2017 11:46 AM EST This study is for PACS storage only and not for interpretation. us Provider Not In System [facility] OUTSIDE IMAGING W /OUT INTERPRETATION Final Result * NM Other Outside (No Interpretation) (08/12/2017 12:00 AM EST) Narrative SYSTEMGENERATED, DOCUMENTATION - 08/26/2017 11:45 AM EST This study is for PACS storage only and not for interpretation. us Provider Not In System [facility] OUTSIDE IMAGING W /OUT INTERPRETATION Final Result * Mammogram Outside (No Interpretation) (07/24/2017 12:15 AM EST) Narrative SYSTEMGENERATED, DOCUMENTATION - 08/26/2017 11:47 AM EST This study is for PACS storage only and not for interpretation. us Provider Not In System [facility] OUTSIDE IMAGING W /OUT INTERPRETATION Final Result * US Breast Outside (No Interpretation) (07/24/2017 12:00 AM EST) Narrative SYSTEMGENERATED, DOCUMENTATION - 08/26/2017 11:47 AM EST This study is for PACS storage only and not for interpretation. us Provider Not In System [facility] OUTSIDE IMAGING W /OUT INTERPRETATION Final Result * US Breast Outside (No Interpretation) (07/15/2017 12:15 AM EST) Narrative SYSTEMGENERATED, DOCUMENTATION - 08/26/2017 11:48 AM EST This study is for PACS storage only and not for interpretation. us Provider Not In System PhD [facility] OUTSIDE IMAGING W /OUT INTERPRETATION Final Result * Mammogram Outside (No Interpretation) (07/15/2017 12:00 AM EST) Narrative SYSTEMGENERATED, DOCUMENTATION - 08/26/2017 11:48 AM EST This study is for PACS storage only and not for interpretation. us Provider Not In System [facility] OUTSIDE IMAGING W /OUT INTERPRETATION Final Result * Mammogram Outside (No Interpretation) (07/08/2017 12:15 AM EDT) Narrative SYSTEMGENERATED, DOCUMENTATION - 08/26/2017 11:50 AM EST This study is for PACS storage only and not for interpretation. us Provider Not In System PhD [facility] OUTSIDE IMAGING W /OUT INTERPRETATION Final Result * Mammogram Outside (No Interpretation) (07/08/2017 12:00 AM EDT) Narrative SYSTEMGENERATED, DOCUMENTATION - 08/26/2017 11:49 AM EST This study is for PACS storage only and not for interpretation. us Provider Not In System PhD [facility] OUTSIDE IMAGING W /OUT INTERPRETATION Final Result * Mammogram Outside (No Interpretation) (07/04/2016 12:00 AM EDT) Narrative SYSTEMGENERATED, DOCUMENTATION - 08/26/2017 11:50 AM EST This study is for PACS storage only and not for interpretation. us Provider Not In System PhD [facility] OUTSIDE IMAGING W /OUT INTERPRETATION Final Result * Mammogram Outside (No Interpretation) (06/08/2015 12:00 AM EDT) Narrative SYSTEMGENERATED, DOCUMENTATION - 08/26/2017 11:44 AM EST This study is for PACS storage only and not for interpretation. us Provider Not In System [facility] OUTSIDE IMAGING W /OUT INTERPRETATION Final Result documented in this encounter Visit Diagnoses Not on filedocumented in this encounter Care Teams Home Care Companion Relationship Specialty Start Date End Date Sammy Morales MD PCP - General Internal Medicine 08/20/17 documented as of this encounter Additional Source Comments The information contained in this document represents components of the legal health record. It is not the complete legal health record.[facility]
--- OUTSIDE RECORDS SUMMARY | 2025-07-07 14:17 | XMS_ITS | Encounter Summary ---
Author Organization [facility] Address [address] [facility] [address] [place] [phone] Phone Care Team Providers Care Machine Coremaker Name Role Phone Sammy Morales MD Primary Care Provider Unavailable Encounter Details Date Type Department Care Team (Late st Contact Info) Description 07/24/2017 Orders Only VIRTUAL DEPARTMENT Interface Provider, Scanning Social History Tobacco Use Types Packs/Day Years [...] Procedure Name Priority Date/Time Associated Diagnosis Comments OUTSIDE LAB Routine 07/24/2017 documented in this encounter Results * Outside Lab (07/24/2017) us Historical Provider LAB BLOOD ORDERABLES [facility] Result documented in this encounter Visit Diagnoses Not on filedocumented in this encounter Care Teams Machine Coremaker Relationship Specialty Start Date End Date Sammy Morales MD PCP - General Internal Medicine 08/20/17 documented as of this encounter Additional Source Comments The information contained in this document represents components of the legal health record. It is not the complete legal health record.[facility]
== END 2025-07-07 12:14 | disposition home or self-care (01) ==
LOC: HO.HUSH 11:24
PROVIDERS: PCP Internal Medicine; Visit Provider Urology
DX: N20.0 Calculus of kidney (principal)
CPT/HCPCS: 99213; G2211

== ENCOUNTER → 2025-07-07 11:23 | Outpatient (BNVA) | payer MEDICARE, SELFPAY | PROVIDERS: PCP Internal Medicine; Visit Provider Urology | DX: N20.0 Calculus of kidney (principal); E21.3 Hyperparathyroidism, unspecified | CPT/HCPCS: 99212 ==